=== PATIENT | male | born 1995 | race Caucasian/White ===

== ENCOUNTER 2019-10-18 14:11 | Inpatient (IN) ==
[2019-10-18] MEDS ORDERED: ROCURONIUM 10 MG/ML ML IV ONE (14:18)
[2019-10-18] MEDS: MIDAZOLAM 2 MG/2 ML VIAL IV PRN ×2 (14:32→15:00)
[2019-10-18 14:34] LABS: POC Blood Urea Nitrogen 13 mg/dl (5-18); POC CO2 21 mmol/L (22-30); POC Calcium, Ionized 1.16 mmol/L (1.10-1.36); POC Chloride 101 mmol/L (96-108); POC Creatinine 1.8 mg/dl (0.2-0.7); POC Glucose, Random 101 mg/dL (70-105); POC Sodium 140 mmol/L (133-145)
--- NOTE | 2019-10-18 14:47 | Emergency Department Note ---
Overdose HPI General Chief Complaint: Overdose Stated Complaint: code Time Seen by Provider: 10/18/19 14:38 Mode of arrival: EMS Limitations: altered mental status and other (Comatose and unresponsive to painful stimuli) History of Present Illness HPI Narrative: Narrative: This patient was found down in the bathroom at [employer] just a couple blocks from the hospital. He was unconscious and unresponsive. He did have some needles and syringes in the room and there was concerned that he had overdosed. EMS gave him 4 mg intranasal of Narcan and then 4 mg IV. On arrival emergency room he started seizing. His pupils initially were pinpoint according to EMS but are now more widely dilated. They are equal. Patient was unres ponsive to painful stimuli and so intubation was carried out immediately. His heart rate is about 149 his O2 sat is 100%. He has no signs of obvious trauma to the body. Related Data Allergies Allergy/AdvReac Type Severity Reaction Status Date / Time No Known Drug Allergies Allergy Unverified 10/18/19 16:00 Review of Systems ROS ROS Narrative: Narrative: Limitations: ROS unobtainable due to patients medical condition [facility] Narrative Patient History Narrative: Narrative: Unable to obtain any past history on this patient and we do not have him in the system as we do not know his name. Medical/Surgical/Family History All Active Problems (Updated 10/18/19 @ 16:19 by Shayne Sharma MD) Drug overdose (Acute) Acute anoxic encephalopathy (Acute) Seizure disorder (Acute) Social History Smoking Status: Unknown if ever smoked Exam Narrative Narrative: Narrative: General Limitations: altered mental status and other (Comatose and unresponsive to painful stimuli) Head Head: atraumatic, normocephalic and normal inspection Eye Eye: Present other (Pupils are 4 to 5 mm in dilation and responsive.) ENT ENT: Present other (Teeth initially clenched.) Neck Neck: Present normal inspection Chest Chest: Present normal inspection and symmetric chest wall rise Respiratory Respiratory: Present normal lung sounds bilaterally and other (Breath sounds were heard through bagging through the ET tube.); Absent respiratory distress, rales/crackles and wheezes Cardiovascular Cardiovascular: Present regular rate, tachycardia and normal heart sounds Adbominal Abdominal: Present soft; Absent distention and tenderness Extremities Extremities: Absent pedal edema and pretibial edema Skin Skin: Present warm, dry and normal color; Absent diaphoresis Course Vital Signs Vital signs: Vital Signs Pulse Rate 135 H 10/18/19 14:12 Respiratory Rate 19 10/18/19 14:12 Blood Pressure 179/93 10/18/19 14:12 Pulse Oximetry (%) 100 10/18/19 14:12 Temperature 101.0 F H 10/18/19 16:05 Pulse Rate 146 10/18/19 14:44 Respiratory Rate 18 10/18/19 16:00 Blood Pressure 123/44 10/18/19 16:04 Pulse Oximetry (%) 94 10/18/19 16:05 Procedures Intubation paralytic: Rocuronium Mg Given: 60 Laryngoscope: glide Assist Device Used: Bougie ET Tube Size: 8 ET Tube Uncuffed: No Tube Secured Depth (cm): 25 Tube Placement Confirmation: visualized tube passing through cords, equal breath sounds bilaterally and confirmation by capnometry Patient Tolerated Procedure: well and no complications Additional Comments: Respiratory therapy felt that the first tube had a defect in the cuff and so a second tube was passed over the bougie. He continued to have good color change on capnography and continued to have a good O2 saturation and continued to have good breath sounds. This chest x-ray showed good position of the ET tube. Passage of the first ET tube through the cords was visualized. It is felt that the second tube is in the proper position over the bougie using that technique. MDM MDM Narrative Medical decision making narrative: Narrative: Patient's drug screen was positive for opiates and benzodiazepines. White count was elevated he had a temperature of 101. Also was quite acidotic with a pH of 7.0. Anion gap of 30. This patient continued seizing for quite a while and required 8 mg of Ativan and the thousand milligrams of Keppra and a propofol drip to obtain control. I discussed this case quite early with the hospitalist Dr. Cheung who accepted him for admission. CT scan of the head was negative for trauma. He will go to the ICU. Current working diagnosis is drug overdose with an anoxic encephalopathy. Differential Diagnosis Differential Diagnosis: Drug overdose head trauma seizure disorder other medical disorder Lab Data Lab results reviewed: Yes I reviewed the patient's lab results. Result diagrams: 10/18/19 14:18 10/18/19 14:18 Labs: Lab Results 10/18/19 10/18/19 10/18/19 Range/Units 14:18 14:18 14:18 WBC 25.4 H (8.04-15.40) K/mcL RBC 5.66 (4.10-5.74) M/mcL Hgb 17.2 (13.4-20.0) g/dL Hct 55.8 (39.6-57.2) % POC Hct 56.0 (44.0-66.0) % MCV 98.6 (91.3-106.4) fL MCH 30.4 L (31.1-35.9) pg MCHC 30.8 L (33.0-35.7) g/dL RDW 13.0 L (14.6-17.3) % Plt Count 270 (144-449) K/mcL MPV 10.1 L (10.2-12.0) fL Gran % 63.7 (15.2-66.1) % Lymph % (Auto) 26.3 (24.9-68.5) % [place] % (Auto) 7.6 (5.2-20.6) % Eos % (Auto) 1.7 (0.3-5.2) % Baso % (Auto) 0.7 (0.1-0.8) % Gran # 16.19 H (1.60-6.75) K/mcL Lymph # (Auto) 6.68 (1.75-8.0) K/mcL [place] # (Auto) 1.94 H (0.52-1.77) K/mcL Eos # (Auto) 0.43 (0.09-0.66) K/mcL Baso # (Auto) 0.19 H (0.02-0.11) K/mcL POC Sodium 140 (133-145) mmol/L Sodium 142 (133-145) mmol/L POC Potassium 4.0 (3.3-5.1) mmol/L Potassium 4.4 (3.3-5.1) mmol/L POC Chloride 101 (96-108) mmol/L Chloride 94 L (96-108) mmol/L Carbon Dioxide 18 L (22-30) mmol/L POC Total CO2 21 L (22-30) mmol/L Anion Gap 30.0 H (8-16) POC BUN 13 (5-18) mg/dl BUN 12 (5-18) mg/dl Creatinine 2.0 H (0.2-0.7) mg/dl POC Creatinine 1.8 H (0.2-0.7) mg/dl GFR Calculation TNP Glucose 107 H (70-105) mg/dL POC Glucose 101 (70-105) mg/dL Calcium 9.6 (8.6-10.4) mg/dl POC WB Ioniz Calcium 1.16 (1.10-1.36) mmol/L Total Bilirubin 0.4 L (2.0-6.0) mg/dL AST 136 H (0-37) U/l ALT 90 H (0-40) U/l Alkaline Phosphatase 179 (117-390) U/L Total Protein 7.6 (4.8-8.0) gm/dL Albumin 5.0 (3.2-5.2) gm/dL Globulin 2.6 (2.2-3.7) gm/dL Albumin/Globulin Ratio 1.9 (1.0-2.3) Salicylates mg/dL Urine Opiates Screen (NONDETECTED) Ur Oxycodone Screen (NONDETECTED) Urine Methadone Screen (NONDETECTED) Acetaminophen ug/mL Ur Barbiturates Screen (NONDETECTED) Ur Phencyclidine Scrn (NONDETECTED) Ur Amphetamines Screen (NONDETECTED) U Benzodiazepines Scrn (NONDETECTED) Urine Cocaine Screen (NONDETECTED) U Marijuana (THC) Screen (NONDETECTED) Ethyl Alcohol < 0.010 (<0.010) gm/dl 10/18/19 10/18/19 10/18/19 Range/Units 14:18 14:18 15:02 WBC (8.04-15.40) K/mcL RBC (4.10-5.74) M/mcL Hgb (13.4-20.0) g/dL Hct (39.6-57.2) % POC Hct (44.0-66.0) % MCV (91.3-106.4) fL MCH (31.1-35.9) pg MCHC (33.0-35.7) g/dL RDW (14.6-17.3) % Plt Count (144-449) K/mcL MPV (10.2-12.0) fL Gran % (15.2-66.1) % Lymph % (Auto) (24.9-68.5) % [place] % (Auto) (5.2-20.6) % Eos % (Auto) (0.3-5.2) % Baso % (Auto) (0.1-0.8) % Gran # (1.60-6.75) K/mcL Lymph # (Auto) (1.75-8.0) K/mcL [place] # (Auto) (0.52-1.77) K/mcL Eos # (Auto) (0.09-0.66) K/mcL Baso # (Auto) (0.02-0.11) K/mcL POC Sodium (133-145) mmol/L Sodium (133-145) mmol/L POC Potassium (3.3-5.1) mmol/L Potassium (3.3-5.1) mmol/L POC Chloride (96-108) mmol/L Chloride (96-108) mmol/L Carbon Dioxide (22-30) mmol/L POC Total CO2 (22-30) mmol/L Anion Gap (8-16) POC BUN (5-18) mg/dl BUN (5-18) mg/dl Creatinine (0.2-0.7) mg/dl POC Creatinine (0.2-0.7) mg/dl GFR Calculation Glucose (70-105) mg/dL POC Glucose (70-105) mg/dL Calcium (8.6-10.4) mg/dl POC WB Ioniz Calcium (1.10-1.36) mmol/L Total Bilirubin (2.0-6.0) mg/dL AST (0-37) U/l ALT (0-40) U/l Alkaline Phosphatase (117-390) U/L Total Protein (4.8-8.0) gm/dL Albumin (3.2-5.2) gm/dL Globulin (2.2-3.7) gm/dL Albumin/Globulin Ratio (1.0-2.3) Salicylates < 0.3 mg/dL Urine Opiates Screen Suspect positive A (NONDETECTED) Ur Oxycodone Screen None detected (NONDETECTED) Urine Methadone Screen None detected (NONDETECTED) Acetaminophen < 5.0 ug/mL Ur Barbiturates Screen None detected (NONDETECTED) Ur Phencyclidine Scrn None detected (NONDETECTED) Ur Amphetamines Screen None detected (NONDETECTED) U Benzodiazepines Scrn Suspect positive A (NONDETECTED) Urine Cocaine Screen None detected (NONDETECTED) U Marijuana (THC) Screen None detected (NONDETECTED) Ethyl Alcohol (<0.010) gm/dl Radiology Data Radiology results reviewed: Yes I reviewed the patient's radiology results. CC TIME Critical Care Time Critical Care Time: Yes Total Critical Care Time: 60 Attestation: This patient required quite a bit of bedside attention and repeat evaluation including initial intubation. Also control of seizure activity which was quite resistant to initial treatment. Also consultation with specialist for admission. Discharge Plan Patient/Caregiver Discharge Instructions Pt seen by SINGE MACHINE OPERATOR/PA only: No Clinical Impression: Drug overdose, Acute anoxic encephalopathy, Seizure disorder Patient Disposition: Xfer As Inpt ([facility])
[2019-10-18] MEDS ORDERED: LORazepam 2 MG/ML VIAL IV ONE ×4 (15:02→17:47)
[2019-10-18] MEDS: LORazepam 2 MG/ML VIAL IV PRN ×3 (15:05→15:42)
--- NOTE | 2019-10-18 15:05 | Cat Scan Report ---
INDICATION: unresponsive at arrival COMPARISON: None. TECHNIQUE: Axial noncontrast-enhanced images through the brain. Sagittally and coronally reformatted images. FINDINGS: Cerebral hemispheres:Negative. No intra-axial abnormality. No intra-axial hematoma. No localized mass effect. Brain volume is within normal limits. No hydrocephalus Brainstem and cerebellum:No intra-axial abnormality Extra-axial:No acute hemorrhage. No subdural or epidural hematoma. No subarachnoid hemorrhage. Basilar cisterns are normal Calvarial:No calvarial fracture. No lytic lesion Temporal bones are negative. No destructive lesions Soft tissue, orbits, sinuses:Orbits and visualized facial soft tissues are grossly normal. IMPRESSION: Negative noncontrast enhanced brain CT scan The exam was performed using radiation dose optimization techniques including, but not limited to, automated exposure control, adjustment of the mA and/or kV according to patient size and use of iterative reconstruction technique. Interpreted and Authenticated by: Damien Ortega 10/18/19
--- NOTE | 2019-10-18 15:06 | XRay Report ---
INDICATION: Cardiac arrest TECHNIQUE: AP portable supine chest x-ray COMPARISON: None FINDINGS:There is an endotracheal tube with its tip 3 cm above the otis. Lungs:Lungs are negative. No focal pulmonary parenchymal infiltrate or mass Heart, vascular:No significant cardiomegaly. Pulmonary vascularity is normal. No pulmonary edema or pulmonary congestion Mediastinum, sanya:No mediastinal widening. No hilar mass Pleura:No pleural fluid. No pleural-based mass or calcification Skeletal:Negative. IMPRESSION: 1. Endotracheal tube tip 3 cm above the otis 2. Otherwise negative supine chest x-ray Interpreted and Authenticated by: Damien Ortega 10/18/19
[2019-10-18 15:11] LABS: Basophils # (Auto) 0.19 K/mcL (0.02-0.11); Basophils % (Auto) 0.7 % (0.1-0.8); Eosinophils # (Auto) 0.43 K/mcL (0.09-0.66); Eosinophils % (Auto) 1.7 % (0.3-5.2); Granulocytes % (Auto) 63.7 % (15.2-66.1); Hematocrit 55.8 % (39.6-57.2); Hemoglobin 17.2 g/dL (13.4-20.0); Lymphocytes # (Auto) 6.68 K/mcL (1.75-8.0); Lymphocytes % (Auto) 26.3 % (24.9-68.5); Mean Cell Volume 98.6 fL (91.3-106.4); Mean Corpuscular HGB Conc 30.8 g/dL (33.0-35.7); Mean Platelet Volume 10.1 fL (10.2-12.0); Monocytes # (Auto) 1.94 K/mcL (0.52-1.77); Monocytes % (Auto) 7.6 % (5.2-20.6); Platelet Count 270 K/mcL (144-449); RBC 5.66 M/mcL (4.10-5.74); WBC 25.4 K/mcL (8.04-15.40)
[2019-10-18] MEDS ORDERED: levETIRAcetam 1,000 MG in 0.9 % SODIUM CHLORIDE 100 ML IV SCH ×2 (15:18→21:00)
[2019-10-18] MEDS ORDERED: LORazepam 2 MG/ML VIAL ONE ×2 (15:19→15:32)
[2019-10-18 15:27] LABS: Alcohol, Blood < 10.0 mg/dL (<10); Alcohol,Blood < 0.010 gm/dl (<0.010)
[2019-10-18 15:33] LABS: ALT/SGPT 90 U/l (0-40); AST/SGOT 136 U/l (0-37); Albumin/Globulin Ratio 1.9 (1.0-2.3); Alkaline Phosphatase 179 U/L (117-390); Bilirubin,Total 0.4 mg/dL (2.0-6.0); Blood Urea Nitrogen 12 mg/dl (5-18); Calcium 9.6 mg/dl (8.6-10.4); Carbon Dioxide 18 mmol/L (22-30); Chloride 94 mmol/L (96-108); Globulin 2.6 gm/dL (2.2-3.7); Glucose 107 mg/dL (70-105)
[2019-10-18] MEDS ORDERED: PROPOFOL 1,000 MG in PREMIX 1 BAG IV ONE (15:40)
[2019-10-18 16:01] LABS: Amphetamine Screen,Urine NONE DETECTED (NONDETECTED); Barbiturate Screen,Urine NONE DETECTED (NONDETECTED); Benzodiazepines Screen,Urine SUSPECT POSITIVE (NONDETECTED); Cannabinoid Screen,Urine NONE DETECTED (NONDETECTED); Cocaine Screen,Urine NONE DETECTED (NONDETECTED); Opiate Screen,Urine SUSPECT POSITIVE (NONDETECTED); Oxycodone, Urine Screen NONE DETECTED (NONDETECTED); Phencyclidine Screen,Urine NONE DETECTED (NONDETECTED)
[2019-10-18] MEDS ORDERED: 0.9 % SODIUM CHLORIDE 1,000 ML IV ONE (16:04)
[2019-10-18] MEDS ORDERED: 0.9 % SODIUM CHLORIDE 2,000 ML IV ONE (16:04)
[2019-10-18] MEDS ORDERED: 0.9 % SODIUM CHLORIDE 1,000 ML IV SCH ×2 (16:15→16:31)
--- NOTE | 2019-10-18 16:15 | Internal Med History&Physical ---
HPI History of Present Illness Patient information: Note initiated : 10/18/19 at 4:10 pm Service Date, if different from initiated Date: [] Patient: Lucas Sims a 24 y/o M admitted on for code. Chief Complaint: Found down in a grocery store restroom with drug paraphernalia History of present illness: Mr. Sims is a 24 year old M with a history of substance abuse, including methamphetamine and heroin, with a recent heroin and probable clonazepam overdose last month, was hospitalized at [facility]. At that time, he was evaluated by mental health and was determined to be an accidental overdose. History is obtained in reviewing those records, and speaking to his mother at bedside. Of note the patient originally presented as Damien Lambert. His name is been corrected. The patient does have a separate MRN with some data from 2013 and 2014 also in the system. The patient was found down in the restroom at the grocery store [place]door to the hospital. There was drug paraphernalia present. His pupils were initially pinpoint. He received Narcan intranasally x2 by EMS without significant response. As he arrived at the emergency department he began having seizures and received lorazepam. After arrival, his pupils are more responsive though the patient did not respond to physical or verbal stimuli. He subsequently started developing more seizures. He has now been loaded with a gram of Keppra, as well as several further doses of Lorazepam, his seizures are starting to taper off. Significant findings include normal blood pressure, tachycardia up to the 140s during seizure episodes, leukocytosis to 25,000, pH 7.09, PCO2 50 and PO2 428 on ABG, lactate of 6.8 and creatinine of 2.0. Patient is being admitted for further management of apparent drug overdose. Complete past medical, surgical, family and social history not obtainable due to the patient's encephalopathy and being intubated. Review of Systems ROS unobtainable: due to endotracheal tube PFSH PFSH All Active Problems (Updated 10/18/19 @ 20:56 by Theresa Petersen RN) Seizure disorder (Acute) Acute kidney injury (nontraumatic) (Acute) Acidosis, metabolic, with respiratory acidosis (Acute) Seizure (Acute) Drug overdose (Acute) Acute anoxic encephalopathy (Acute) Medical History (Updated 10/18/19 @ 20:56 by Theresa Petersen RN) Asthma (Acute) Drug overdose (Acute) Seizure (Acute) Family History (Updated 10/18/19 @ 18:23 by Sonja Kaur MD) Unknown No problems noted. Social History smoking status: Smoker, status unknown MEDS/ALLERGIES Home Medications and Allergies Home Medications Medication Instructions Recorded Confirmed Type clonazepam PO 10/18/19 History Allergies Allergy/AdvReac Type Severity Reaction Status Date / Time No Known Drug Allergies Allergy Unverified 10/18/19 16:00 EXAM Constitutional Vitals: Temp Pulse Resp BP Pulse Ox 101.0 F H 146 18 123/44 94 10/18/19 16:05 10/18/19 14:44 10/18/19 16:00 10/18/19 16:04 10/18/19 16:05 GENERAL: Sedated, intermittent seizure activity, intubated. HEENT: No evidence of trauma noted, pupils 7 mm and reactive slowly to direct and indirect light. No nystagmus. Conjunctiva clear, no scleral icterus. Hearing unable to be tested. Oropharynx with endotracheal and orogastric tubes in place, membranes appear moist. NECK: Supple without meningismus, no thyromegaly RESPIRATORY: Breath sounds clear bilaterally without wheezes or rhonchi. Respiratory effort assisted by ventilator. CARDIOVASCULAR: Tachycardic, regular, no murmur appreciated. 2+ carotid pulses, 2+ dorsalis pedis pulses, no peripheral edema. GI: Abdomen soft, no apparent tenderness, bowel sounds present. No hepatosplenomegaly. MUSCULOSKELETAL: No joint erythema or swelling, normal range of motion in all extremities. SKIN: Warm, dry. Track keane on the arms. Several tattoos. Skin turgor normal. NEUROLOGIC: Patient experiencing seizure activity with movement of the left arm, chewing motions on the endotracheal tube, fluttering of the eyelids and spontaneous eye movements. Cranial nerves II through XII as can best be tested noted above under HEENT. Muscle mass normal. Strength cannot be examined. Sensation cannot be examined due to mental status. PSYCHIATRIC: Not responsive, unable to assess mood, affect, insight or orientation. DATA Data Completed and Pending Labs on day of discharge: Labs from last 24 hours 10/18/19 10/18/19 10/18/19 15:02 15:02 14:18 WBC RBC Hgb Hct POC Hct MCV MCH MCHC RDW Plt Count MPV Gran % Lymph % (Auto) [place] % (Auto) Eos % (Auto) Baso % (Auto) Gran # Lymph # (Auto) [place] # (Auto) Eos # (Auto) Baso # (Auto) VBG Lactic Acid 6.8 POC Sodium Sodium POC Potassium Potassium POC Chloride Chloride Carbon Dioxide POC Total CO2 Anion Gap POC BUN BUN Creatinine POC Creatinine GFR Calculation Glucose POC Glucose Calcium POC WB Ioniz Calcium Total Bilirubin AST ALT Alkaline Phosphatase Total Protein Albumin Globulin Albumin/Globulin Ratio Salicylates Urine Opiates Screen Suspect positive A Ur Opiates Confirm Pending Ur Oxycodone Screen None detected Urine Methadone Screen None detected Ur Methadone Confirm Pending Acetaminophen < 5.0 Ur Barbiturates Screen None detected Ur Barbiturate Confirm Pending Ur Phencyclidine Scrn None detected Urine PCP Confirm Pending Ur Amphetamines Screen None detected U Amphetamines Confirm Pending U Benzodiazepines Scrn Suspect positive A U Benzodiazepine Confm Pending Urine Cocaine Screen None detected Urine Cocaine Confirm Pending U Cannabinoids Confirm Pending U Marijuana (THC) Screen None detected Ethyl Alcohol 10/18/19 10/18/19 10/18/19 14:18 14:18 14:18 WBC RBC Hgb Hct POC Hct 56.0 MCV MCH MCHC RDW Plt Count MPV Gran % Lymph % (Auto) [place] % (Auto) Eos % (Auto) Baso % (Auto) Gran # Lymph # (Auto) [place] # (Auto) Eos # (Auto) Baso # (Auto) VBG Lactic Acid POC Sodium 140 Sodium 142 POC Potassium 4.0 Potassium 4.4 POC Chloride 101 Chloride 94 L Carbon Dioxide 18 L POC Total CO2 21 L Anion Gap 30.0 H POC BUN 13 BUN 12 Creatinine 2.0 H POC Creatinine 1.8 H GFR Calculation TNP Glucose 107 H POC Glucose 101 Calcium 9.6 POC WB Ioniz Calcium 1.16 Total Bilirubin 0.4 L AST 136 H ALT 90 H Alkaline Phosphatase 179 Total Protein 7.6 Albumin 5.0 Globulin 2.6 Albumin/Globulin Ratio 1.9 Salicylates < 0.3 Urine Opiates Screen Ur Opiates Confirm Ur Oxycodone Screen Urine Methadone Screen Ur Methadone Confirm Acetaminophen Ur Barbiturates Screen Ur Barbiturate Confirm Ur Phencyclidine Scrn Urine PCP Confirm Ur Amphetamines Screen U Amphetamines Confirm U Benzodiazepines Scrn U Benzodiazepine Confm Urine Cocaine Screen Urine Cocaine Confirm U Cannabinoids Confirm U Marijuana (THC) Screen Ethyl Alcohol < 0.010 10/18/19 14:18 WBC 25.4 H RBC 5.66 Hgb 17.2 Hct 55.8 POC Hct MCV 98.6 MCH 30.4 L MCHC 30.8 L RDW 13.0 L Plt Count 270 MPV 10.1 L Gran % 63.7 Lymph % (Auto) 26.3 [place] % (Auto) 7.6 Eos % (Auto) 1.7 Baso % (Auto) 0.7 Gran # 16.19 H Lymph # (Auto) 6.68 [place] # (Auto) 1.94 H Eos # (Auto) 0.43 Baso # (Auto) 0.19 H VBG Lactic Acid POC Sodium Sodium POC Potassium Potassium POC Chloride Chloride Carbon Dioxide POC Total CO2 Anion Gap POC BUN BUN Creatinine POC Creatinine GFR Calculation Glucose POC Glucose Calcium POC WB Ioniz Calcium Total Bilirubin AST ALT Alkaline Phosphatase Total Protein Albumin Globulin Albumin/Globulin Ratio Salicylates Urine Opiates Screen Ur Opiates Confirm Ur Oxycodone Screen Urine Methadone Screen Ur Methadone Confirm Acetaminophen Ur Barbiturates Screen Ur Barbiturate Confirm Ur Phencyclidine Scrn Urine PCP Confirm Ur Amphetamines Screen U Amphetamines Confirm U Benzodiazepines Scrn U Benzodiazepine Confm Urine Cocaine Screen Urine Cocaine Confirm U Cannabinoids Confirm U Marijuana (THC) Screen Ethyl Alcohol Impressions Impressions: EKG sinus tachycardia in the 140s. No acute injury. Imaging and Cardiology CT scan - head: Status: image reviewed by me Additional comments: No acute findings Chest x-ray: Status: image reviewed by me Additional comments: Clear lung levy with endotracheal tube in place A/P Assessment and plan (1) Drug overdose: Status: Acute Qualifiers: Encounter type: initial encounter Injury intent: undetermined intent Qualified Code(s): T50.904A - Poisoning by unspecified drugs, medicaments and biological substances, undetermined, initial encounter (2) Seizure: Status: Acute (3) Acute anoxic encephalopathy: Status: Acute (4) Acidosis, metabolic, with respiratory acidosis: Status: Acute (5) Acute kidney injury (nontraumatic): Status: Acute Narrative A/P Narrative: 24-year-old male with a history of drug abuse and drug overdoses found down in the bathroom of local grocery store, presenting unresponsive with seizure activity. Drug overdose. Urine drug screen is positive for opioids. Had a heroin overdose in August of this year, was hospitalized at [facility]. Ultimately determined to be accidental at that time, he was not interested in inpatient rehabilitation. He does have a prescription for clonazepam and that was suspected to be a co-ingestant at that hospitalization. Currently, patient did have drug paraphernalia when he is found, suspect this is also opioid overdose, also positive for benzodiazepines, thus clonazepam may also be contributing. No evidence of ethanol, no evidence of acetaminophen. Salicylate level is pending, particularly given his metabolic acidosis. Plan: ICU admission Continue with mechanical ventilation and respiratory support Continue with fluids Follow-up salicylate level Seizure. Patient developed seizures at presentation in the hospital. Received multiple doses of lorazepam in the ED, subsequently loaded with Keppra. That in combination with propofol for sedation has suppressed seizure activity. Acc ording to his mother, no known history of seizures. May be related to metabolic acidosis or possible anoxic brain injury. No evidence of hemorrhage, infarction or other finding on CT of the head. Continue with Keppra 500 mg twice daily Seizure precautions PRN lorazepam Encephalopathy. Suspect acute anoxic encephalopathy. Given the patient's pH of 7.09 after presentation in the hospital suspect he may have been down for quite some time to develop a metabolic and respiratory acidosis. This likely had concurrent hypoxia. Other causes of encephalopathy include drug toxicity (though no real change with naloxone). No evidence of infarct or hemorrhage on CT. Neurochecks Monitor recovery Supportive care Mixed metabolic and respiratory acidosis. pH 7.09 with PCO2 of 50 with lactate of 6.8. PCO2 of 50 was after the patient had been bagged, thus may have had a higher PCO2 in the field. Given severity of acidosis and elevation of lactate, suspect he was down for a prolonged period. Correct respiratory acidosis ventilator Trend lactate with correction of hypoxia and hypoventilation. If slow to clear acidemia, would consider bicarbonate Acute kidney injury. Patient's creatinine was 2.0 at presentation with a BUN of 12. His creatinine was 1.1 when he presented to [facility] last month. This may represent ATN from hypoxia or hypotension associated with his drug overd ose. He is nonoliguric and has produced urine in the hospital. Send spot urine sodium and creatinine and calculate fractional excretion of sodium Continue with hydration Monitor urine output Renally dose any medications as needed. Leukocytosis. White count is 25,000. Suspected this is reactive secondary to seizure, being found down. No evidence of infiltrate on chest x-ray, no evidence of infection in the urine. No other evidence on exam. Patient subsequently also developed fever to 101, again likely secondary from seizure. A diagnosis of sepsis is NOT made. Monitor Supportive care Abnormal transaminases. AST is mildly elevated 136, ALT at 90. May been secondary to hypoxia and being down. We will be secondary to drug use. Monitor Prophylaxis: Lovenox CODE STATUS: Full code Time Spent With Patient Time: Critical care time spent in evaluating and managing patient: 65 min
[2019-10-18] MEDS ORDERED: ONDANSETRON 4 MG/2 ML VIAL IV PRN (16:31)
[2019-10-18] MEDS ORDERED: LORazepam 2 MG/ML VIAL IV PRN (16:31)
[2019-10-18] MEDS: 0.9 % SODIUM CHLORIDE 1,000 ML IV SCH (17:15)
[2019-10-18] MEDS: ACETAMINOPHEN 650 MG SUPP.RECT PR PRN (17:16)
--- NOTE | 2019-10-18 18:51 | XRay Report ---
INDICATION: OG Tube placement confirmation TECHNIQUE: AP portable chest x-ray COMPARISON: Previous chest x-ray dated 10/18/2019 FINDINGS:Endotracheal tube tip 4 cm above the otis. There is an esophagogastric tube with its tip in the proximal stomach. Sidehole of the catheter is just below the diaphragm. This should be advanced. Lungs:Lungs are negative. No focal pulmonary parenchymal infiltrate or mass Heart, vascular:No significant cardiomegaly. Pulmonary vascularity is normal. No pulmonary edema or pulmonary congestion Mediastinum, sanya:No mediastinal widening. No hilar mass Pleura:No pleural fluid. No pleural-based mass or calcification Skeletal:Negative. IMPRESSION: 1. Endotracheal tube in good position 2. Esophagogastric tube in the proximal stomach Interpreted and Authenticated by: Damien Ortega 10/18/19
[2019-10-18] MEDS: 0.9 % SODIUM CHLORIDE 10 ML SYRINGE IV SCH (20:19)
[2019-10-18] MEDS: CHLORHEXIDINE GLUCONATE 1 ML ORAL.SOL SWABMOUTH SCH (20:19)
[2019-10-18] MEDS: FAMOTIDINE/PF 20 MG/2 ML VIAL IV SCH (20:19)
[2019-10-18] MEDS ORDERED: levETIRAcetam 750 MG in 0.9 % SODIUM CHLORIDE 100 ML IV SCH (21:00)
[2019-10-18] MEDS ORDERED: LACTATED RINGERS 1,000 ML IV ONE (22:00)
[2019-10-18 23:14] LABS: Blood Urea Nitrogen 14 mg/dl (6-20); Calcium 7.3 mg/dl (8.6-10.4); Carbon Dioxide 14 mmol/L (22-30); Chloride 104 mmol/L (96-108); Glomerular Filtration Rate 76; Glucose 97 mg/dL (70-105)
[2019-10-19] MEDS: PROPOFOL 1,000 MG in PREMIX 1 BAG IV SCH ×2 (03:50→22:38)
[2019-10-19] MEDS: 0.9 % SODIUM CHLORIDE 250 ML IV SCH ×2 (03:50→17:52)
[2019-10-19] MEDS: ACETAMINOPHEN 650 MG SUPP.RECT PR PRN (05:15)
[2019-10-19] MEDS: 0.9 % SODIUM CHLORIDE 10 ML SYRINGE IV SCH ×3 (06:01→20:08)
[2019-10-19 06:07] LABS: Hematocrit 49.9 % (40.1-51.0); Hemoglobin 16.5 g/dL (13.7-17.5); Mean Cell Volume 93.3 fL (80.0-100.0); Mean Corpuscular HGB Conc 33.1 g/dL (31.0-36.0); Mean Platelet Volume 10.4 fL (7.4-10.4); Platelet Count 168 K/mcL (140-440); RBC 5.35 M/mcL (4.63-6.08); Red Cell Distribution Width 13.4 % (11.5-14.5); WBC 15.6 K/mcL (4.50-11.00)
[2019-10-19 06:43] LABS: Albumin 2.9 gm/dL (3.2-5.2); Albumin/Globulin Ratio 1.2 (1.0-2.3); Alkaline Phosphatase 114 U/L (39-117); Bilirubin,Direct < 0.2 mg/dL (0.0-0.3); Bilirubin,Total 0.4 mg/dL (0.0-1.0); Blood Urea Nitrogen 13 mg/dl (6-20); Calcium 7.3 mg/dl (8.6-10.4); Carbon Dioxide 18 mmol/L (22-30); Chloride 104 mmol/L (96-108); Globulin 2.5 gm/dL (2.2-3.7); Glomerular Filtration Rate 76; Glucose 99 mg/dL (70-105); Phosphorous 3.2 mg/dL (2.7-4.5); Triglycerides 708 mg/dl (<150); Uric Acid 6.8 mg/dL (2.5-8.0)
[2019-10-19] MEDS: 0.9 % SODIUM CHLORIDE 1,000 ML IV SCH ×6 (06:47→21:19)
--- NOTE | 2019-10-19 06:52 | XRay Report ---
INDICATION: Mechanically Ventilated TECHNIQUE: AP portable semiupright chest x-ray COMPARISON: Previous chest x-rays dated 10/18/2019 FINDINGS:Endotracheal tube tip remains 4 cm above the otis Lungs:Density in left retrocardiac region consistent with left lower lobe volume loss. Pneumonia is possible. Possible developing right upper lobe infiltrate. Continued follow-up recommended. Heart, vascular:No significant cardiomegaly. Pulmonary vascularity is normal. No pulmonary edema or pulmonary congestion Mediastinum, sanya:No mediastinal widening. No hilar mass Pleura:No pleural fluid. No pleural-based mass or calcification Skeletal:Negative. IMPRESSION: 1. Left lower lobe density consistent with volume loss. 2. Mild right upper lobe infiltrate. Continued follow-up recommended Interpreted and Authenticated by: Damien Ortega 10/19/19
[2019-10-19 06:55] LABS: ALT/SGPT 499 U/l (0-40)
[2019-10-19 07:03] LABS: AST/SGOT 1443 U/l (0-37); Lactate Dehydrogenase 1663 U/L (94-250)
[2019-10-19] MEDS: levETIRAcetam 500 MG in 0.9 % SODIUM CHLORIDE 100 ML IV SCH ×2 (09:40→20:08)
[2019-10-19] MEDS: cefTRIAXone 1 GM VIAL IV SCH (09:40)
[2019-10-19] MEDS: FAMOTIDINE/PF 20 MG/2 ML VIAL IV SCH ×2 (09:40→20:08)
[2019-10-19] MEDS: ENOXAPARIN 40 MG/0.4 ML SYRINGE SQ SCH (09:40)
[2019-10-19] MEDS: CHLORHEXIDINE GLUCONATE 1 ML ORAL.SOL SWABMOUTH SCH ×2 (09:40→20:09)
[2019-10-19] MEDS: ACETAMINOPHEN 650 MG/65 ML BOTTLE IV PRN ×2 (11:28→22:03)
[2019-10-19 12:21] LABS: Appearance,Urine TURBID; Bacteria,Urine 0 /hpf (0); Bilirubin,Urine NEG (NEG); Color,Urine BROWN; Culture Indicated,Urine NO; Glucose,Urine (UA) NEGATIVE (NEG); Ketones,Urine 20 mg/dL (NEG); Leukocyte Esterase,Urine NEG /uL (NEG); Mucus,Urine MOD /hpf (0); Nitrate,Urine NEG (NEG); Protein,Urine 100 mg/dL (NEG); Specific Gravity,Urine 1.028 (1.000-1.035); Urine Blood NEG mg/dL (<0.03); Urine RBC 0 /hpf (0-1); Urine Squamous Epithelial Cell 0 /hpf (0-4); Urine WBC 0 /hpf (0-4); Urobilinogen,Urine NEG (NEG)
[2019-10-19] MEDS ORDERED: LACTATED RINGERS 1,000 ML IV ONE (12:48)
[2019-10-19] MEDS ORDERED: SODIUM CHLORIDE 0.9% IV ONE (13:30)
[2019-10-19] MEDS ORDERED: FOSPHENYTOIN IV ONE (13:30)
[2019-10-19 13:43] LABS: Band Neutrophils % 9 % (0-10); Lymphocytes % 11 % (15-49); Monocytes % (Manual) 8 % (1-12); Platelet Estimate NORMAL (NORMAL); RBC Morphology NORMAL (NORMAL); Segmented Neutrophils % 72 % (38-78)
[2019-10-19 16:30] LABS: Blood Urea Nitrogen 12 mg/dl (6-20); Calcium 7.3 mg/dl (8.6-10.4); Carbon Dioxide 18 mmol/L (22-30); Chloride 106 mmol/L (96-108); Glomerular Filtration Rate 118; Glucose 144 mg/dL (70-105)
[2019-10-19 17:21] LABS: Creatine Kinase 50100 IU/L (24-195)
[2019-10-19] MEDS: LORazepam 2 MG/ML VIAL IV PRN ×4 (17:51→22:50)
[2019-10-19] MEDS ORDERED: LORazepam 2 MG/ML VIAL ONE (17:55)
--- NOTE | 2019-10-19 21:13 | Internal Med Progress Note ---
SUBJECTIVE Subjective Patient information: Note initiated : 10/19/19 at 9:12 pm Service Date, if different from initiated Date: [] Patient: Lucas Sims 24 y/o M admitted on 10/18/19 for code. Chief Complaint: Follow-up apparent overdose Interval history: Patient remains intubated. When sedation lightened, he is able to follow some commands. However times he develops clenched fist, raises his arms, tends to turn to one side which last for several seconds and then he becomes unresponsive. Concerned he may be having some partial seizures. Urine noted to become cloudy brownish. Repeat urine analysis with protein, no red cells, no casts. Given urine findings, CPK sent, significant rhabdomyolysis 60,000. Renal function has normalized however. Pertinent ROS: Not obtainable, patient intubated. Constitutional Vitals: Vital Signs Temp Pulse Resp BP Pulse Ox 100.3 F H 100 H 18 110/75 100 10/19/19 21:00 10/19/19 21:00 10/19/19 19:15 10/19/19 21:00 10/19/19 21:00 Period Temp Pulse Resp BP Sys/Patel Pulse Ox Last 24 Hr 98.8 F-102.7 F 81-141 14-30 99-156/67-107 90-100 Intake and Output 10/19/19 10/19/19 10/19/19 05:59 13:59 21:59 Intake Total 2064 1224 3048 Output Total 477 459 545 Balance 1298 626 7638 Weight 178 lb 1 oz Patient Weight 10/20/19 05:59 Weight 178 lb 1 oz General: Intubated. When sedation lightened, tracks, generally follows instructions Chest: Clear bilaterally Cardiovascular: Tachycardic, regular. No peripheral edema Abdomen: Soft, no apparent tenderness Neuro: Follows some commands. Moves right leg more than left leg, though not much movement in either. Activity Specialist. At times has episodes of fist clenching, raising arm, head turning and eyes deviating, lasting several seconds then becoming less responsive to questioning. Intake & Output: Intake & Output 10/19/19 10/19/19 10/19/19 05:59 13:59 21:59 Intake Total 2064 1224 3048 Output Total 477 459 545 Balance 6127 703 9783 Weight 178 lb 1 oz Intake: IV 2064 1224 3048 Sodium Chloride 0.9% 1,000 ml @ 1000 1000 1600 150 mls/hr IV .[id number] [facility] Rx#: [id number] Sodium Chloride 0.9% 250 ml @ 250 20 mls/hr IV .[id number] [facility] Rx#: [id number] Cerebyx 1,500 mg In Sodium 130 Chloride 0.9% 100 ml @ 200 mls/ hr IV ONCE ONE Rx#:[id number] Lactated Ringers 1,000 ml @ 1000 1000 Wide Open IV BOLUS ONE Rx#: [id number] Diprivan 1,000 mg In Premix 1 64 54 68 Bag @ 10 MCG/KG/MIN 4.555 mls/ hr IV .[id number] [facility] Rx#: [id number] Keppra 500 mg In Sodium 105 Chloride 0.9% 100 ml @ 200 mls/ hr IV Q12H [facility] Rx#:[id number] Tube Feeding 0 0 Output: Gastric Drainage 75 Oral NG/OG 75 Urine Catheter Amount 402 459 505 Void Amount 40 Other: Urine Appearance Cloudy Cloudy Uretheral (Garcia) Clear Cloudy Cloudy Urine Color Yellow Brown Brown Straw Uretheral (Garcia) Red Brown Tea Colored Straw Urine Odor Normal Normal OBJ DATA Labs CBC & Chem 7: 10/19/19 05:10 10/19/19 15:05 Labs: Abnormal Lab Results 10/19/19 10/19/19 10/19/19 15:05 09:15 05:10 WBC MCH MCHC RDW MPV Gran # [place] # (Auto) Baso # (Auto) Lymphocytes % VBG Lactic Acid Chloride Carbon Dioxide 18 L POC Total CO2 Anion Gap Creatinine POC Creatinine Glucose 144 H Calcium 7.3 L Total Bilirubin GGT AST ALT Lactate Dehydrogenase Total Creatine Kinase 99689 H 51700 H Total Protein Albumin Triglycerides Urine Protein 100 A Urine Ketones 20 A Urine Opiates Screen U Benzodiazepines Scrn 10/19/19 10/19/19 10/18/19 05:10 05:10 22:10 WBC 15.6 H MCH MCHC RDW MPV Gran # [place] # (Auto) Baso # (Auto) Lymphocytes % 11 L VBG Lactic Acid Chloride Carbon Dioxide 18 L 14 L POC Total CO2 Anion Gap 18.0 H Creatinine 1.3 H 1.3 H POC Creatinine Glucose Calcium 7.3 L 7.3 L Total Bilirubin GGT 165 H AST 1443 H ALT 499 H Lactate Dehydrogenase 1663 H Total Creatine Kinase Total Protein 5.4 L Albumin 2.9 L Triglycerides 708 H Urine Protein Urine Ketones Urine Opiates Screen U Benzodiazepines Scrn 10/18/19 10/18/19 10/18/19 15:02 15:02 14:18 WBC MCH MCHC RDW MPV Gran # [place] # (Auto) Baso # (Auto) Lymphocytes % VBG Lactic Acid 6.8 H* Chloride 94 L Carbon Dioxide 18 L POC Total CO2 21 L Anion Gap 30.0 H Creatinine 2.0 H POC Creatinine 1.8 H Glucose 107 H Calcium Total Bilirubin 0.4 L GGT AST 136 H ALT 90 H Lactate Dehydrogenase Total Creatine Kinase Total Protein Albumin Triglycerides Urine Protein Urine Ketones Urine Opiates Screen Suspect positive A U Benzodiazepines Scrn Suspect positive A 10/18/19 14:18 WBC 25.4 H MCH 30.4 L MCHC 30.8 L RDW 13.0 L MPV 10.1 L Gran # 16.19 H [place] # (Auto) 1.94 H Baso # (Auto) 0.19 H Lymphocytes % VBG Lactic Acid Chloride Carbon Dioxide POC Total CO2 Anion Gap Creatinine POC Creatinine Glucose Calcium Total Bilirubin GGT AST ALT Lactate Dehydrogenase Total Creatine Kinase Total Protein Albumin Triglycerides Urine Protein Urine Ketones Urine Opiates Screen U Benzodiazepines Scrn Meds: Medications Acetaminophen (Tylenol) 650 mg ND Q4-6HP PRN; Protocol PRN Reason: Per Pain Protocol/Fever > 101 Last Admin: 10/19/19 05:15 Dose: 650 mg Documented by: Albuterol Sulfate (Ventolin) 2.5 mg NEB Q4HP PRN PRN Reason: Wheezing Ceftriaxone Sodium (Rocephin) 1 gm IV DAILY [facility]; Protocol Last Admin: 10/19/19 09:40 Dose: 1 gm Documented by: Chlorhexidine Gluconate (Peridex) 15 ml SWABMOUTH BID [facility] Last Admin: 10/19/19 20:09 Dose: 15 ml Documented by: Enoxaparin Sodium (Lovenox) 40 mg SQ DAILY [facility] Last Admin: 10/19/19 09:40 Dose: 40 mg Documented by: Famotidine (Pepcid) 20 mg IV Q12 [facility] Last Admin: 10/19/19 20:08 Dose: 20 mg Documented by: Levetiracetam 500 mg/ Sodium (Chloride) 105 mls @ 200 mls/hr IV Q12H [facility] Last Admin: 10/19/19 20:08 Dose: 200 mls/hr Documented by: Propofol 1,000 mg/ Premix 100 mls @ 4.555 mls/hr IV .[id number] [facility]; Protocol Last Titration: 10/19/19 17:30 Dose: 35 mcg/kg/min, 15.943 mls/hr Documented by: Sodium Chloride (Sodium Chloride 0.9%) 250 mls @ 20 mls/hr IV .[id number] [facility] Last Admin: 10/19/19 17:52 Dose: 20 mls/hr Documented by: Acetaminophen (Ofirmev) 650 mg in 65 mls @ 130 mls/hr IV Q6HP PRN; Protocol PRN Reason: PAIN/FEVER > 101 Last Infusion: 10/19/19 12:15 Dose: Infused Documented by: Sodium Chloride (Sodium Chloride 0.9%) 1,000 mls @ 250 mls/hr IV .Q4H [facility] Last Admin: 10/19/19 17:52 Dose: 250 mls/hr Documented by: Lorazepam (Ativan) 2 mg IV Q30MIN PRN PRN Reason: Seizure Activity Last Admin: 10/19/19 20:08 Dose: 2 mg Documented by: Ondansetron HCl (Zofran) 4 mg IV Q4-6HP PRN; Protocol PRN Reason: Nausea And Vomiting Sodium Chloride (Saline Flush) 10 ml IV Q8 [facility] Last Admin: 10/19/19 20:08 Dose: Not Given Documented by: A/P Narrative A/P Narrative: 24-year-old male with a history of drug abuse and drug overdoses found down in the bathroom of local grocery store, presenting unresponsive with seizure activity. Drug overdose. Continuing to require ventilatory support secondary to several problems as outlined below. Ventilating and oxygenating easily. Urine drug screen is positive for opioids. Had a heroin overdose in August of this year, was hospitalized at [facility]. Ultimately determined to be accidental at that time, he was not interested in inpatient rehabilitation. He does have a prescription for clonazepam and that was suspected to be a co-ingestant at that hospitalization. Currently, patient did have drug paraphernalia when he is found, suspect this is also opioid overdose, also positive for benzodiazepines, thus clonazepam may also be contributing. No evidence of ethanol, no evidence of acetaminophen. Salicylate level was undetectable. Plan: Continue with mechanical ventilation and respiratory support Continue with fluids Weaning trials as mental status allows Seizures. Ongoing. Currently suspect he is having partial seizures with his fist clenching, head and eye deviation episodes followed by decreased responsiveness. At presentation, he developed seizures upon arrival to the ED. Received multiple doses of lorazepam in the ED, subsequently loaded with Keppra. That in combination with propofol for sedation has suppressed seizure activity. According to his mother, no known history of seizures. May be related to metabolic acidosis or possible anoxic brain injury. No evidence of hemorrhage, infarction or other finding on CT of the head. Continues on Keppra 500 mg IV twice daily. Given suspicion for ongoing seizures, will load with fosphenytoin Continue with Keppra 500 mg twice daily Load with 20 mg/kilogram fosphenytoin Seizure precautions PRN lorazepam Encephalopathy. 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 Given the patient's pH of 7.09 after presentation in the hospital suspect he may have been down for quite some time to develop a metabolic and respiratory acidosis. This likely had concurrent hypoxia. Other causes of encephalopathy include drug toxicity (though no real change with naloxone). No evidence of infarct or hemorrhage on CT. Has waxing and waning ability to follow commands. Part of that may be due to seizures as noted above. Continue neurochecks Supportive care Continue wake-up trials to monitor mental status Mixed metabolic and respiratory acidosis. Resolving. pH has normalized, anion gap has closed and lactate is normalized. At presentation, pH 7.09 with PCO2 of 50 with lactate of 6.8. PCO2 of 50 was after the patient had been bagged, thus may have had a higher PCO2 in the field. Given severity of acidosis and elevation of lactate, suspect he was down for a prolonged period. -Supportive care, follow labs. Acute kidney injury. Resolving. Patient's creatinine was 2.0 at presentation with a BUN of 12. His creatinine was 1.1 when he presented to [facility] last month. This may represent ATN from hypoxia or hypotension associated with his drug overdose, though given the rapidity of resolution, this may be more prerenal in nature. Fractional excretion of sodium is 0.3% supporting a prerenal etiology. He continues with urine output. Continue with hydration Monitor urine output Rhabdomyolysis. Suspect it may be multifactorial from being down, as well as from significant seizure activity. CPK today was 60,000, recheck in the afternoon showed drop to 50,000. Urine is muddy, however urine analysis without casts and is maintaining urine output. Creatinine is improving with fluids. Bolus of further liter of lactated Ringer's Increase fluid rate to 250 mils an hour Follow CK Leukocytosis. White count is 25,000 at presentation, is improved 15,000 without antibiotics. Suspected this is reactive secondary to seizure, being found down. No evidence of infiltrate on admission chest x-ray, no evidence of infect ion in the urine. Patient subsequently also developed fever to 101, and has persisted with elevated fever since. Initially felt possibly secondary to seizure. Now concern for possible aspiration pneumonia. Chest x-ray this morning suggests developing right upper lobe infiltrate. Currently no sepsis. Begin ceftriaxone 1 g IV every 24 hours Monitor white count. Abnormal transaminases. At presentation AST was mildly elevated 136, ALT at 90, though has worsened today. Suspect this represents shock liver/hypoxic liver damage. Continue to monitor Prophylaxis: Lovenox CODE STATUS: Full code Time Spent With Patient Time: Critical care time throughout this date of service: 40 minutes.
[2019-10-20] MEDS: 0.9 % SODIUM CHLORIDE 1,000 ML IV SCH ×6 (02:24→20:29)
[2019-10-20] MEDS: PROPOFOL 1,000 MG in PREMIX 1 BAG IV SCH ×2 (03:49→09:52)
[2019-10-20 07:03] LABS: Hematocrit 42.3 % (40.1-51.0); Hemoglobin 13.7 g/dL (13.7-17.5); Mean Cell Volume 95.3 fL (80.0-100.0); Mean Corpuscular HGB Conc 32.4 g/dL (31.0-36.0); Mean Platelet Volume 10.7 fL (7.4-10.4); Platelet Count 155 K/mcL (140-440); RBC 4.44 M/mcL (4.63-6.08); Red Cell Distribution Width 13.7 % (11.5-14.5); WBC 17.1 K/mcL (4.50-11.00)
--- NOTE | 2019-10-20 07:15 | XRay Report ---
INDICATION: Mechanically Ventilated TECHNIQUE: AP portable semiupright chest x-ray COMPARISON: Previous chest x-rays dated 10/19/2019, 10/18/2019 FINDINGS:Endotracheal tube and esophagogastric tube are unchanged. Lungs:Left basilar parenchymal density consistent with volume loss and infiltrate. Pneumonia is possible. Findings are stable since 10/19/2019 but new since 10/18/2019 Heart, vascular:No significant cardiomegaly. Pulmonary vascularity is normal. No pulmonary edema or pulmonary congestion Mediastinum, sanya:No mediastinal widening. No hilar mass Pleura:No pleural fluid. No pleural-based mass or calcification Skeletal:Negative. IMPRESSION: Left basilar pulmonary parenchymal density consistent with volume loss and possible pneumonia Interpreted and Authenticated by: Damien Ortega 10/20/19
[2019-10-20 07:43] LABS: Bilirubin,Direct < 0.2 mg/dL (0.0-0.3)
[2019-10-20 07:47] LABS: ALT/SGPT 382 U/l (0-40); AST/SGOT 658 U/l (0-37); Albumin 2.3 gm/dL (3.2-5.2); Albumin/Globulin Ratio 1.1 (1.0-2.3); Alkaline Phosphatase 73 U/L (39-117); Bilirubin,Total 0.6 mg/dL (0.0-1.0); Blood Urea Nitrogen 8 mg/dl (6-20); Calcium 7.3 mg/dl (8.6-10.4); Carbon Dioxide 19 mmol/L (22-30); Chloride 113 mmol/L (96-108); Globulin 2.1 gm/dL (2.2-3.7); Glomerular Filtration Rate 124; Glucose 104 mg/dL (70-105); Phosphorous 1.1 mg/dL (2.7-4.5); Triglycerides 90 mg/dl (<150); Uric Acid 2.4 mg/dL (2.5-8.0)
[2019-10-20 07:57] LABS: Lactate Dehydrogenase 1011 U/L (94-250)
[2019-10-20 08:14] LABS: Band Neutrophils % 2 % (0-10); Eosinophils % (Manual) 2 % (0-7); Lymphocytes % 27 % (15-49); Monocytes % (Manual) 4 % (1-12); Platelet Estimate NORMAL (NORMAL); RBC Morphology NORMAL (NORMAL); Segmented Neutrophils % 65 % (38-78)
[2019-10-20] MEDS: 0.9 % SODIUM CHLORIDE 10 ML SYRINGE IV SCH ×3 (08:20→20:29)
[2019-10-20] MEDS: cefTRIAXone 1 GM VIAL IV SCH (09:40)
[2019-10-20] MEDS: ENOXAPARIN 40 MG/0.4 ML SYRINGE SQ SCH (09:41)
[2019-10-20] MEDS: FAMOTIDINE/PF 20 MG/2 ML VIAL IV SCH ×2 (09:41→20:29)
[2019-10-20] MEDS: 0.9 % SODIUM CHLORIDE 250 ML IV SCH ×3 (09:53→22:53)
[2019-10-20] MEDS ORDERED: DEXMEDETOMIDINE 400 MCG in PREMIX 1 BAG IV SCH (10:15)
[2019-10-20] MEDS: levETIRAcetam 500 MG in 0.9 % SODIUM CHLORIDE 100 ML IV SCH ×2 (10:19→20:29)
--- NOTE | 2019-10-20 10:32 | Internal Med Progress Note ---
SUBJECTIVE Subjective Patient information: Note initiated : 10/20/19 at 10:24 am Service Date, if different from initiated Date: [] Patient: Lucas Sims 24 y/o M admitted on 10/18/19 for code. Chief Complaint: Follow-up overdose Interval history: Patient was stable overnight, no further possible seizure activity. This morning still moving around on significant doses of propofol. Undergoing weaning parameters. Showing some agitation, but should be able to be extubated. Continuing to maintain good urine output. Creatinine improved. CPKs decreased to 17,000. Pertinent ROS: Unobtainable, patient intubated Constitutional Vitals: Vital Signs Temp Pulse Resp BP Pulse Ox 98.1 F 107 H 20 129/89 98 10/20/19 10:00 10/20/19 10:00 10/20/19 07:01 10/20/19 10:00 10/20/19 10:00 Period Temp Pulse Resp BP Sys/Patel Pulse Ox Last 24 Hr 97.0 F-101.6 F 78-141 18-30 98-156/61-102 90-100 Intake and Output 10/19/19 10/20/19 10/20/19 21:59 05:59 13:59 Intake Total 4025 1083 1346 Output Total 545 1110 114 Balance 3480 -27 1232 Weight 178 lb 1 oz General: Intubated, sedated Chest: Clear, not overriding the vent Cardiovascular: Regular, no edema Abdomen: Soft, nondistended Neuro: Sedated, moves all extremities, upper extremities more than lower extremities Intake & Output: Intake & Output 10/19/19 10/20/19 10/20/19 21:59 05:59 13:59 Intake Total 4025 1083 1346 Output Total 545 1110 114 Balance 3480 -27 1232 Weight 178 lb 1 oz Intake: IV 4025 1083 1346 Sodium Chloride 0.9% 1,000 ml @ 2463 1000 1000 250 mls/hr IV .Q4H [facility] Rx#: [id number] Sodium Chloride 0.9% 250 ml @ 250 250 20 mls/hr IV .[id number] [facility] Rx#: [id number] Cerebyx 1,500 mg In Sodium 130 Chloride 0.9% 100 ml @ 200 mls/ hr IV ONCE ONE Rx#:[id number] Lactated Ringers 1,000 ml @ 1000 Wide Open IV BOLUS ONE Rx#: [id number] Diprivan 1,000 mg In Premix 1 77 83 96 Bag @ 10 MCG/KG/MIN 4.555 mls/ hr IV .[id number] [facility] Rx#: [id number] Keppra 500 mg In Sodium 105 Chloride 0.9% 100 ml @ 200 mls/ hr IV Q12H [facility] Rx#:[id number] Tube Feeding 0 Output: Gastric Drainage 75 Oral NG/OG 75 Urine Catheter Amount 505 1035 114 Void Amount 40 Other: Urine Appearance Cloudy Clear Cloudy Uretheral (Garcia) Cloudy Clear Urine Color Straw Bright Yellow Brown Uretheral (Garcia) Straw Bright Yellow Urine Odor Normal OBJ DATA Labs CBC & Chem 7: 10/20/19 05:12 10/20/19 05:12 Labs: Abnormal Lab Results 10/20/19 10/20/19 10/20/19 05:12 05:12 05:12 WBC 17.1 H RBC 4.44 L MCH MCHC RDW MPV 10.7 H Gran # [place] # (Auto) Baso # (Auto) Lymphocytes % VBG Lactic Acid Chloride 113 H Carbon Dioxide 19 L POC Total CO2 Anion Gap Creatinine POC Creatinine Glucose Uric Acid 2.4 L Calcium 7.3 L Phosphorus 1.1 L Total Bilirubin GGT 94 H AST 658 H ALT 382 H Lactate Dehydrogenase 1011 H Total Creatine Kinase 07529 H Total Protein 4.4 L Albumin 2.3 L Globulin 2.1 L Triglycerides Urine Protein Urine Ketones Urine Opiates Screen U Benzodiazepines Scrn 10/19/19 10/19/19 10/19/19 15:05 09:15 05:10 WBC RBC MCH MCHC RDW MPV Gran # [place] # (Auto) Baso # (Auto) Lymphocytes % VBG Lactic Acid Chloride Carbon Dioxide 18 L POC Total CO2 Anion Gap Creatinine POC Creatinine Glucose 144 H Uric Acid Calcium 7.3 L Phosphorus Total Bilirubin GGT AST ALT Lactate Dehydrogenase Total Creatine Kinase 32495 H 57785 H Total Protein Albumin Globulin Triglycerides Urine Protein 100 A Urine Ketones 20 A Urine Opiates Screen U Benzodiazepines Scrn 10/19/19 10/19/19 10/18/19 05:10 05:10 22:10 WBC 15.6 H RBC MCH MCHC RDW MPV Gran # [place] # (Auto) Baso # (Auto) Lymphocytes % 11 L VBG Lactic Acid Chloride Carbon Dioxide 18 L 14 L POC Total CO2 Anion Gap 18.0 H Creatinine 1.3 H 1.3 H POC Creatinine Glucose Uric Acid Calcium 7.3 L 7.3 L Phosphorus Total Bilirubin GGT 165 H AST 1443 H ALT 499 H Lactate Dehydrogenase 1663 H Total Creatine Kinase Total Protein 5.4 L Albumin 2.9 L Globulin Triglycerides 708 H Urine Protein Urine Ketones Urine Opiates Screen U Benzodiazepines Scrn 10/18/19 10/18/19 10/18/19 15:02 15:02 14:18 WBC RBC MCH MCHC RDW MPV Gran # [place] # (Auto) Baso # (Auto) Lymphocytes % VBG Lactic Acid 6.8 H* Chloride 94 L Carbon Dioxide 18 L POC Total CO2 21 L Anion Gap 30.0 H Creatinine 2.0 H POC Creatinine 1.8 H Glucose 107 H Uric Acid Calcium Phosphorus Total Bilirubin 0.4 L GGT AST 136 H ALT 90 H Lactate Dehydrogenase Total Creatine Kinase Total Protein Albumin Globulin Triglycerides Urine Protein Urine Ketones Urine Opiates Screen Suspect positive A U Benzodiazepines Scrn Suspect positive A 10/18/19 14:18 WBC 25.4 H RBC MCH 30.4 L MCHC 30.8 L RDW 13.0 L MPV 10.1 L Gran # 16.19 H [place] # (Auto) 1.94 H Baso # (Auto) 0.19 H Lymphocytes % VBG Lactic Acid Chloride Carbon Dioxide POC Total CO2 Anion Gap Creatinine POC Creatinine Glucose Uric Acid Calcium Phosphorus Total Bilirubin GGT AST ALT Lactate Dehydrogenase Total Creatine Kinase Total Protein Albumin Globulin Triglycerides Urine Protein Urine Ketones Urine Opiates Screen U Benzodiazepines Scrn Meds: Medications Acetaminophen (Tylenol) 650 mg SC Q4-6HP PRN; Protocol PRN Reason: Per Pain Protocol/Fever > 101 Last Admin: 10/19/19 05:15 Dose: 650 mg Documented by: Albuterol Sulfate (Ventolin) 2.5 mg NEB Q4HP PRN PRN Reason: Wheezing Ceftriaxone Sodium (Rocephin) 1 gm IV DAILY [facility]; Protocol Last Admin: 10/20/19 09:40 Dose: 1 gm Documented by: Chlorhexidine Gluconate (Peridex) 15 ml SWABMOUTH BID [facility] Last Admin: 10/19/19 20:09 Dose: 15 ml Documented by: Enoxaparin Sodium (Lovenox) 40 mg SQ DAILY [facility] Last Admin: 10/20/19 09:41 Dose: 40 mg Documented by: Famotidine (Pepcid) 20 mg IV Q12 [facility] Last Admin: 10/20/19 09:41 Dose: 20 mg Documented by: Levetiracetam 500 mg/ Sodium (Chloride) 105 mls @ 200 mls/hr IV Q12H [facility] Last Admin: 10/20/19 10:19 Dose: 200 mls/hr Documented by: Propofol 1,000 mg/ Premix 100 mls @ 4.555 mls/hr IV .[id number] [facility]; Protocol Last Admin: 10/20/19 09:52 Dose: 35 mcg/kg/min, 15.943 mls/hr Documented by: Sodium Chloride (Sodium Chloride 0.9%) 250 mls @ 20 mls/hr IV .[id number] [facility] Last Admin: 10/20/19 09:53 Dose: 20 mls/hr Documented by: Acetaminophen (Ofirmev) 650 mg in 65 mls @ 130 mls/hr IV Q6HP PRN; Protocol PRN Reason: PAIN/FEVER > 101 Last Admin: 10/19/19 22:03 Dose: 130 mls/hr Documented by: Sodium Chloride (Sodium Chloride 0.9%) 1,000 mls @ 250 mls/hr IV .Q4H [facility] Last Admin: 10/20/19 10:19 Dose: Not Given Documented by: Dexmedetomidine HCl 400 mcg/ (Premix) 100 mls @ 4.038 mls/hr IV .Q24H [facility]; Protocol Lorazepam (Ativan) 2 mg IV Q30MIN PRN PRN Reason: Seizure Activity Last Admin: 10/19/19 22:50 Dose: 2 mg Documented by: Ondansetron HCl (Zofran) 4 mg IV Q4-6HP PRN; Protocol PRN Reason: Nausea And Vomiting Sodium Chloride (Saline Flush) 10 ml IV Q8 [facility] Last Admin: 10/20/19 08:20 Dose: Not Given Documented by: A/P Assessment and plan (1) Drug overdose: Status: Acute Qualifiers: Encounter type: initial encounter Injury intent: undetermined intent Qualified Code(s): T50.904A - Poisoning by unspecified drugs, medicaments and biological substances, undetermined, initial encounter Narrative A/P Narrative: 24-year-old male with a history of drug abuse and drug overdoses found down in the bathroom of local grocery store, presenting unresponsive with seizure activity. Drug overdose. Improving. Tolerating weaning trial this morning. Has been able to follow commands when sedation lightened throughout the morning as well as overnight. Ventilating and oxygenating easily. Had a heroin overdose in August of this year, was hospitalized at [facility]. Ultimately determined to be accidental at that time, he was not interested in inpatient rehabilitation. He does have a prescription for clonazepam and that was suspected to be a co- ingestant at that hospitalization. Currently, patient did have drug paraphernalia when he is found, suspect this is also opioid overdose, also positive for benzodiazepines, thus clonazepam may also be contributing. No evidence of ethanol, no evidence of acetaminophen. Salicylate level was undetectable. Plan: Wean mechanical ventilation to extubate this morning Continue with fluids Seizures. Improved. Loaded with fosphenytoin yesterday, remains on twice daily Keppra. At presentation, he developed seizures upon arrival to the ED. Received multiple doses of lorazepam in the ED, subsequently loaded with Keppra. That in combination with propofol for sedation has suppressed seizure activity. According to his mother, no known history of seizures. May be related to metabolic acidosis or possible anoxic brain injury. No evidence of hemorrhage, infarction or other finding on CT of the head. Continues on Keppra 500 mg IV twice daily. Continue with Keppra 500 mg twice daily Seizure precautions PRN lorazepam Encephalopathy. Improved, generally able to consistently follow commands. That was waxing and waning yesterday.. Initially suspected acute anoxic encephalopathy, though postictal state may also be contributing. Given the patient's pH of 7.09 after presentation in the hospital suspect he may have been down for quite some time to develop a metabolic and respiratory acidosis. This likely had concurrent hypoxia. Other causes of encephalopathy include drug toxicity (though no real change with naloxone). No evidence of infarct or h emorrhage on CT. Continue neurochecks Supportive care Mixed metabolic and respiratory acidosis. Resolving. pH has normalized, anion gap has closed and lactate is normalized. At presentation, pH 7.09 with PCO2 of 50 with lactate of 6.8. PCO2 of 50 was after the patient had been bagged, thus may have had a higher PCO2 in the field. Given severity of acidosis and elevation of lactate, suspect he was down for a prolonged period. -Supportive care, follow labs. Acute kidney injury. Resolving. Patient's creatinine was 2.0 at presentation with a BUN of 12. His creatinine was 1.[address] [facility] last month. This may represent ATN from hypoxia or hypotension associated with his drug overdose, though given the rapidity of resolution, this may be more prerenal in nature. Fractional excretion of sodium is 0.3% supporting a prerenal etiology. He continues with urine output. Continue with hydration Monitor urine output Rhabdomyolysis. Suspect it may be multifactorial from being down, as well as from significant seizure activity. CPK today was 60,000 when initially checked, down to 17,000 this morning. Yesterday his urine was muddy, however urine analysis without casts and is maintaining urine output. Continue at 250 mils an hour Follow CK Leukocytosis. White count is 25,000 at presentation, is improved 15,000 without antibiotics, then 17,000 this morning. Suspected this is reactive secondary to seizure, being found down. No evidence of infiltrate on admission chest x-ray, no evidence of infection in the urine. Patient subsequently also developed fever to 101, and has persisted with elevated temperature. Initially felt possibly secondary to seizure, concern on 825 was possible aspiration pneumonia with yesterday's chest x-ray suggesting d eveloping right upper lobe infiltrate. Today's chest x-ray with left lower lobe atelectasis, though infiltrate cannot be ruled out. Started on ceftriaxone yesterday. Continue ceftriaxone 1 g IV every 24 hours Monitor white count. Abnormal transaminases. At presentation AST was mildly elevated 136, ALT at 90,, worsened on second hospital day, now improving. Suspect this represents shock liver/hypoxic liver damage. Continue to monitor Time Spent With Patient Time: Total time spent is greater than 50% in coordination of care (as documented) at patient's floor/unit and/or counseling patient: Total time spent with greater than 50% in coordination of care (as documented) at patient's floor/unit and/or counseling patient:: Greater than 35 minutes
--- NOTE | 2019-10-20 13:03 | Internal Med Progress Note ---
SUBJECTIVE Subjective Patient information: Note initiated : 10/20/19 at 12:53 pm Service Date, if different from initiated Date: [] Patient: Lucas Sims a 24 y/o M admitted on 10/18/19 for code. Chief Complaint: [] Interval history: History of present illness: Mr. Sims is a 24 year old M with a history of substance abuse, including methamphetamine and heroin, with a recent heroin and probable clonazepam overdose last month, was hospitalized at [facility]. At that time, he was evaluated by mental health and was determined to be an accidental overdose. History is obtained in reviewing those records, and speaking to his mother at bedside. Of note the patient originally presented as Damien Lambert. His name is been corrected. The patient does have a separate MRN with some data from 2013 and 2014 also in the system. The patient was found down in the restroom at the grocery store [place] to the hospital. There was drug paraphernalia present. His pupils were initially pinpoint. He received Narcan intranasally x2 by EMS without significant response. As he arrived at the emergency department he began having seizures and received lorazepam. After arrival, his pupils are more responsive though the patient did not respond to physical or verbal stimuli. He subsequently started developing more seizures. He has now been loaded with a gram of Keppra, as well as several further doses of Lorazepam, his seizures are starting to taper off. Significant findings include normal blood pressure, tachycardia up to the 140s during seizure episodes, leukocytosis to 25,000, pH 7.09, PCO2 50 and PO2 428 on ABG, lactate of 6.8 and creatinine of 2.0. Patient is being admitted for further management of apparent drug overdose. Complete past medical, surgical, family and social history not obtainable due to the patient's encephalopathy and being intubated. 10/18 Patient remains intubated. When sedation lightened, he is able to follow some commands. However times he develops clenched fist, raises his arms, tends to turn to one side which last for several seconds and then he becomes unresponsive. Concerned he may be having some partial seizures. Urine noted to become cloudy brownish. Repeat urine analysis with protein, no red cells, no casts. Given urine findings, CPK sent, significant rhabdomyolysis 60,000. Renal function has normalized however. 10/19 Patient was stable overnight, no further possible seizure activity. This morning still moving around on significant doses of propofol. Undergoing weaning parameters. Showing some agitation, but should be able to be extubated. Continuing to maintain good urine output. Creatinine improved. CPKs decreased to 17,000. Pertinent ROS: Unobtainable, patient intubated 10/20 Constitutional Vitals: Vital Signs Temp Pulse Resp BP Pulse Ox 98.0 F 102 H 18 139/87 99 10/20/19 11:00 10/20/19 11:00 10/20/19 11:40 10/20/19 11:00 10/20/19 11:40 Period Temp Pulse Resp BP Sys/Patel Pulse Ox Last 24 Hr 97.0 F-101.2 F 78-141 18-30 98-156/61-100 90-100 Intake and Output 10/19/19 10/20/19 10/20/19 21:59 05:59 13:59 Intake Total 4025 1083 2487 Output Total 545 1110 220 Balance 3480 -27 2267 Weight 80.768 kg Intake & Output: Intake & Output 10/19/19 10/20/19 10/20/19 21:59 05:59 13:59 Intake Total 4025 1083 2487 Output Total 545 1110 220 Balance 3480 -27 2267 Weight 80.768 kg Intake: IV 4025 1083 2487 Sodium Chloride 0.9% 1,000 ml @ 2463 1000 2000 250 mls/hr IV .Q4H PONCE Rx#: [id number] Sodium Chloride 0.9% 250 ml @ 250 250 20 mls/hr IV .[id number] PONCE Rx#: [id number] Precedex 400 Mcg/100 ml 15 Dextrose 400 Mcg In Premix 1 Bag @ 0.2 MCG/KG/HR 4.038 mls/ hr IV .Q24H PONCE Rx#:[id number] Cerebyx 1,500 mg In Sodium 130 Chloride 0.9% 100 ml @ 200 mls/ hr IV ONCE ONE Rx#:[id number] Lactated Ringers 1,000 ml @ 1000 Wide Open IV BOLUS ONE Rx#: [id number] Diprivan 1,000 mg In Premix 1 77 83 117 Bag @ 10 MCG/KG/MIN 4.555 mls/ hr IV .[id number] PONCE Rx#: [id number] Keppra 500 mg In Sodium 105 105 Chloride 0.9% 100 ml @ 200 mls/ hr IV Q12H PONCE Rx#:[id number] Tube Feeding 0 Output: Gastric Drainage 75 Oral NG/OG 75 Urine Catheter Amount 505 1035 220 Void Amount 40 Other: Urine Appearance Cloudy Clear Clear Uretheral (Garcia) Cloudy Clear Urine Color Straw Bright Yellow Light Jessica Uretheral (Garcia) Straw Bright Yellow Urine Odor Normal Exam: General: Alert, Awake, No acute Distress Eyes/N/T: EOMI, Head/Neck: neck supple, CV: RRR, No murmurs, Pulm: Clear b/l, no wheezing/rhonchi/rales Abd: soft, nontender, +BS x4 Ext: no clubbing/cyanosis/edema Neuro: Alert, no focal deficits, moves all extremities, Skin: warm/dry OBJ DATA Labs CBC & Chem 7: 10/20/19 05:12 10/20/19 05:12 Labs: Abnormal Lab Results 10/20/19 10/20/19 10/20/19 05:12 05:12 05:12 WBC 17.1 H RBC 4.44 L MCH MCHC RDW MPV 10.7 H Gran # [place] # (Auto) Baso # (Auto) Lymphocytes % VBG Lactic Acid Chloride 113 H Carbon Dioxide 19 L POC Total CO2 Anion Gap Creatinine POC Creatinine Glucose Uric Acid 2.4 L Calcium 7.3 L Phosphorus 1.1 L Total Bilirubin GGT 94 H AST 658 H ALT 382 H Lactate Dehydrogenase 1011 H Total Creatine Kinase 61358 H Total Protein 4.4 L Albumin 2.3 L Globulin 2.1 L Triglycerides Urine Protein Urine Ketones Urine Opiates Screen U Benzodiazepines Scrn 10/19/19 10/19/19 10/19/19 15:05 09:15 05:10 WBC RBC MCH MCHC RDW MPV Gran # [place] # (Auto) Baso # (Auto) Lymphocytes % VBG Lactic Acid Chloride Carbon Dioxide 18 L POC Total CO2 Anion Gap Creatinine POC Creatinine Glucose 144 H Uric Acid Calcium 7.3 L Phosphorus Total Bilirubin GGT AST ALT Lactate Dehydrogenase Total Creatine Kinase 16240 H 85241 H Total Protein Albumin Globulin Triglycerides Urine Protein 100 A Urine Ketones 20 A Urine Opiates Screen U Benzodiazepines Scrn 10/19/19 10/19/19 10/18/19 05:10 05:10 22:10 WBC 15.6 H RBC MCH MCHC RDW MPV Gran # [place] # (Auto) Baso # (Auto) Lymphocytes % 11 L VBG Lactic Acid Chloride Carbon Dioxide 18 L 14 L POC Total CO2 Anion Gap 18.0 H Creatinine 1.3 H 1.3 H POC Creatinine Glucose Uric Acid Calcium 7.3 L 7.3 L Phosphorus Total Bilirubin GGT 165 H AST 1443 H ALT 499 H Lactate Dehydrogenase 1663 H Total Creatine Kinase Total Protein 5.4 L Albumin 2.9 L Globulin Triglycerides 708 H Urine Protein Urine Ketones Urine Opiates Screen U Benzodiazepines Scrn 10/18/19 10/18/19 10/18/19 15:02 15:02 14:18 WBC RBC MCH MCHC RDW MPV Gran # [place] # (Auto) Baso # (Auto) Lymphocytes % VBG Lactic Acid 6.8 H* Chloride 94 L Carbon Dioxide 18 L POC Total CO2 21 L Anion Gap 30.0 H Creatinine 2.0 H POC Creatinine 1.8 H Glucose 107 H Uric Acid Calcium Phosphorus Total Bilirubin 0.4 L GGT AST 136 H ALT 90 H Lactate Dehydrogenase Total Creatine Kinase Total Protein Albumin Globulin Triglycerides Urine Protein Urine Ketones Urine Opiates Screen Suspect positive A U Benzodiazepines Scrn Suspect positive A 10/18/19 14:18 WBC 25.4 H RBC MCH 30.4 L MCHC 30.8 L RDW 13.0 L MPV 10.1 L Gran # 16.19 H [place] # (Auto) 1.94 H Baso # (Auto) 0.19 H Lymphocytes % VBG Lactic Acid Chloride Carbon Dioxide POC Total CO2 Anion Gap Creatinine POC Creatinine Glucose Uric Acid Calcium Phosphorus Total Bilirubin GGT AST ALT Lactate Dehydrogenase Total Creatine Kinase Total Protein Albumin Globulin Triglycerides Urine Protein Urine Ketones Urine Opiates Screen U Benzodiazepines Scrn Meds: Medications Acetaminophen (Tylenol) 650 mg OH Q4-6HP PRN; Protocol PRN Reason: Per Pain Protocol/Fever > 101 Last Admin: 10/19/19 05:15 Dose: 650 mg Documented by: Albuterol Sulfate (Ventolin) 2.5 mg NEB Q4HP PRN PRN Reason: Wheezing Ceftriaxone Sodium (Rocephin) 1 gm IV DAILY PONCE; Protocol Last Admin: 10/20/19 09:40 Dose: 1 gm Documented by: Chlorhexidine Gluconate (Peridex) 15 ml SWABMOUTH BID PONCE Last Admin: 10/19/19 20:09 Dose: 15 ml Documented by: Enoxaparin Sodium (Lovenox) 40 mg SQ DAILY [facility] Last Admin: 10/20/19 09:41 Dose: 40 mg Documented by: Famotidine (Pepcid) 20 mg IV Q12 [facility] Last Admin: 10/20/19 09:41 Dose: 20 mg Documented by: Levetiracetam 500 mg/ Sodium (Chloride) 105 mls @ 200 mls/hr IV Q12H [facility] Last Infusion: 10/20/19 11:16 Dose: Infused Documented by: Propofol 1,000 mg/ Premix 100 mls @ 4.555 mls/hr IV .[id number] [facility]; Protocol Last Titration: 10/20/19 11:21 Dose: 0 mcg/kg/min, 0 mls/hr Documented by: Sodium Chloride (Sodium Chloride 0.9%) 250 mls @ 20 mls/hr IV .[id number] [facility] Last Admin: 10/20/19 09:53 Dose: 20 mls/hr Documented by: Acetaminophen (Ofirmev) 650 mg in 65 mls @ 130 mls/hr IV Q6HP PRN; Protocol PRN Reason: PAIN/FEVER > 101 Last Admin: 10/19/19 22:03 Dose: 130 mls/hr Documented by: Sodium Chloride (Sodium Chloride 0.9%) 1,000 mls @ 250 mls/hr IV .Q4H [facility] Last Admin: 10/20/19 11:17 Dose: 250 mls/hr Documented by: Dexmedetomidine HCl 400 mcg/ (Premix) 100 mls @ 4.038 mls/hr IV .Q24H [facility]; Protocol Last Titration: 10/20/19 12:00 Dose: 1 mcg/kg/hr, 20.192 mls/hr Documented by: Sodium Chloride (Sodium Chloride 0.9%) 250 mls @ 20 mls/hr IV .[id number] [facility] Last Admin: 10/20/19 11:00 Dose: 20 mls/hr Documented by: Lorazepam (Ativan) 2 mg IV Q30MIN PRN PRN Reason: Seizure Activity Last Admin: 10/19/19 22:50 Dose: 2 mg Documented by: Ondansetron HCl (Zofran) 4 mg IV Q4-6HP PRN; Protocol PRN Reason: Nausea And Vomiting Sodium Chloride (Saline Flush) 10 ml IV Q8 [facility] Last Admin: 10/20/19 08:20 Dose: Not Given Documented by: A/P Narrative A/P Narrative: A: *Drug overdose. Improving. -Had a heroin overdose in August of this year, was hospitalized at [facility], Ultimately determined to be accidenta -He does have a prescription for clonazepam and that was suspected to be a co-ingestant at that hospitalization. -Currently, patient did have drug paraphernalia when he is found, suspect this is also opioid overdose, also positive for benzodiazepines, thus clonazepam may also be contributing. -No evidence of ethanol, no evidence of acetaminophen. Salicylate level was undetectable. *Seizures: Improved. Loaded with fosphenytoin yesterday, remains on twice daily Keppra. -At presentation, he developed seizures upon arrival to the ED. Received multiple doses of lorazepam in the ED, subsequently loaded with Keppra. That in combination with propofol for sedation has suppressed seizure activity. -According to his mother, no known history of seizures. -May be related to metabolic acidosis or possible anoxic brain injury. -No evidence of hemorrhage, infarction or other finding on CT of the head. *Encephalopathy: Improved. Initially suspected acute anoxic encephalopathy, though postictal state may also be contributing. Given the patient's pH of 7.09 after presentation in the hospital suspect he may have been down for quite some time to develop a metabolic and respiratory acidosis. This likely had concurrent hypoxia. Other causes of encephalopathy include drug toxicity (tho ugh no real change with naloxone). -No evidence of infarct or hemorrhage on CT. *Mixed metabolic and respiratory acidosis: Resolving. At presentation, pH 7.09 with PCO2 of 50 with lactate of 6.8. -Given severity of acidosis and elevation of lactate, suspect he was down for a prolonged period. *QUENTIN: Resolving. This may represent ATN from hypoxia or hypotension associated with his drug overdose, though given the rapidity of resolution, this may be more prerenal in nature. Fractional excretion of sodium is 0.3% supporting a prerenal etiology. He continues with urine output. *Rhabdomyolysis: Suspect it may be multifactorial from being down, as well as from significant seizure activity. CPK today was 60,000 when initially checked, down to 17,000 this morning. Yesterday his urine was muddy, however urine analysis without casts and is maintaining urine output. *Leukocytosis: White count is 25,000 at presentation, is improved 15,000 without antibiotics, then 17,000 this morning. Suspected this is reactive secondary to seizure, being found down. No evidence of infiltrate on admission chest x-ray, no evidence of infection in the urine. Patient subsequently also developed fever to 101, and has persisted with elevated temperature. Initially felt possibly secondary to seizure, concern on 825 was possible aspiration pneumonia with yesterday's chest x-ray suggesting developing right upper lobe infiltrate. Today's chest x-ray with left lower lobe atelectasis, though infiltrate cannot be ruled out. Started on ceftriaxone yesterday. *Asp PNA: *Abnormal transaminases. At presentation AST was mildly elevated 136, ALT at 90,, worsened on second hospital day, now improving. Suspect this represents shock liver/hypoxic liver damage. P: Continue with Keppra 500 mg twice daily, PRN lorazepam Seizure precautions Continue neurochecks Continue ceftriaxone 1 g IV every 24 hours, Monitor white count. Continue with hydration, Monitor urine output Follow CK - -ppx: lovenox/ppi Time Spent With Patient Time: Total time spent is greater than 50% in coordination of care (as documented) at patient's floor/unit and/or counseling patient:
[2019-10-20] MEDS ORDERED: PANTOPRAZOLE 40 MG VIAL IV SCH (13:05)
[2019-10-20] MEDS ORDERED: POTASSIUM PHOSPHATE 40 MEQ in DEXTROSE 5% IN WATER 500 ML IV ONE (15:11)
[2019-10-20] MEDS: CHLORHEXIDINE GLUCONATE 1 ML ORAL.SOL SWABMOUTH SCH ×2 (15:15→20:29)
[2019-10-20] MEDS: DEXMEDETOMIDINE 400 MCG in PREMIX 1 BAG IV SCH ×2 (16:08→22:54)
[2019-10-20] MEDS: NEUTRA PHOS 1 PACKET PO SCH (20:29)
[2019-10-20] MEDS: LORazepam 2 MG/ML VIAL IV PRN (21:20)
[2019-10-21] MEDS: 0.9 % SODIUM CHLORIDE 250 ML IV SCH (00:44)
[2019-10-21] MEDS: 0.9 % SODIUM CHLORIDE 1,000 ML IV SCH ×2 (01:48→06:21)
[2019-10-21] MEDS: 0.9 % SODIUM CHLORIDE 10 ML SYRINGE IV SCH ×3 (05:11→20:39)
[2019-10-21] MEDS: DEXMEDETOMIDINE 400 MCG in PREMIX 1 BAG IV SCH ×2 (05:38→17:29)
[2019-10-21 06:58] LABS: Hematocrit 43.4 % (40.1-51.0); Hemoglobin 13.3 g/dL (13.7-17.5); Mean Cell Volume 99.1 fL (80.0-100.0); Mean Corpuscular HGB Conc 30.6 g/dL (31.0-36.0); Mean Platelet Volume 10.6 fL (7.4-10.4); Platelet Count 119 K/mcL (140-440); RBC 4.38 M/mcL (4.63-6.08); Red Cell Distribution Width 14.2 % (11.5-14.5); WBC 12.9 K/mcL (4.50-11.00)
[2019-10-21] MEDS: ALBUTEROL SULFATE 2.5 MG/3 ML NEBULIZER NEB PRN ×2 (07:00→12:18)
[2019-10-21 07:13] LABS: ALT/SGPT 545 U/l (0-40); Albumin 2.5 gm/dL (3.2-5.2); Alkaline Phosphatase 94 U/L (39-117); Bilirubin,Direct 0.3 mg/dL (0.0-0.3); Bilirubin,Total 0.7 mg/dL (0.0-1.0); Blood Urea Nitrogen 8 mg/dl (6-20); Carbon Dioxide 20 mmol/L (22-30); Globulin 2.4 gm/dL (2.2-3.7); Glomerular Filtration Rate 118; Glucose 108 mg/dL (70-105); Triglycerides 106 mg/dl (<150); Uric Acid 2.4 mg/dL (2.5-8.0)
[2019-10-21 07:14] LABS: Chloride 113 mmol/L (96-108)
--- NOTE | 2019-10-21 07:32 | Internal Med Progress Note ---
SUBJECTIVE Subjective Patient information: Note initiated : 10/21/19 at 7:26 am Service Date, if different from initiated Date: [] Patient: Lucas Sims a 24 y/o M admitted on 10/18/19 for code. Chief Complaint: [] Interval history: History of present illness: Mr. Sims is a 24 year old M with a history of substance abuse, including methamphetamine and heroin, with a recent heroin and probable clonazepam overdose last month, was hospitalized at [facility]. At that time, he was evaluated by mental health and was determined to be an accidental overdose. History is obtained in reviewing those records, and speaking to his mother at bedside. Of note the patient originally presented as Damien Lambert. His name is been corrected. The patient does have a separate MRN with some data from 2013 and 2014 also in the system. The patient was found down in the restroom at the grocery store [place] to the hospital. There was drug paraphernalia present. His pupils were initially pinpoint. He received Narcan intranasally x2 by EMS without significant response. As he arrived at the emergency department he began having seizures and received lorazepam. After arrival, his pupils are more responsive though the patient did not respond to physical or verbal stimuli. He subsequently started developing more seizures. He has now been loaded with a gram of Keppra, as well as several further doses of Lorazepam, his seizures are starting to taper off. Significant findings include normal blood pressure, tachycardia up to the 140s during seizure episodes, leukocytosis to 25,000, pH 7.09, PCO2 50 and PO2 428 on ABG, lactate of 6.8 and creatinine of 2.0. Patient is being admitted for further management of apparent drug overdose. Complete past medical, surgical, family and social history not obtainable due to the patient's encephalopathy and being intubated. 10/18 Patient remains intubated. When sedation lightened, he is able to follow some commands. However times he develops clenched fist, raises his arms, tends to turn to one side which last for several seconds and then he becomes unresponsive. Concerned he may be having some partial seizures. Urine noted to become cloudy brownish. Repeat urine analysis with protein, no red cells, no casts. Given urine findings, CPK sent, significant rhabdomyolysis 60,000. Renal function has normalized however. 10/19 Patient was stable overnight, no further possible seizure activity. This morning still moving around on significant doses of propofol. Undergoing weaning parameters. Showing some agitation, but should be able to be extubated. Continuing to maintain good urine output. Creatinine improved. CPKs decreased to 17,000. Pertinent ROS: Unobtainable, patient intubated 10/20 Precedex being weaned down. Clarifying home medications. Leukocytosis improved again. Phosphorus improving. Transaminitis mild bump from yesterday but improved from several days ago. CK bumped from yesterday. Good urine output, clear now. Review of Systems: denies headache/fever/chills/nausea/vomiting/chest or abdominal pain/cough/dyspnea/diarrhea. Otherwise see above. Constitutional Vitals: Vital Signs Temp Pulse Resp BP Pulse Ox 97.2 F 68 17 111/74 100 10/21/19 07:01 10/21/19 07:01 10/21/19 07:01 10/21/19 07:01 10/21/19 07:01 Period Temp Pulse Resp BP Sys/Patel Pulse Ox Last 24 Hr 90.4 F-98.8 F 54-107 13-25 96-148/53-97 95-100 Intake and Output 10/20/19 10/21/19 10/21/19 21:59 05:59 13:59 Intake Total 2326 3260.0909 105 Output Total 750 1067 90 Balance 1576 2193.0909 15 Weight 83.546 kg Intake & Output: Intake & Output 10/20/19 10/21/19 10/21/19 21:59 05:59 13:59 Intake Total 2326 3260.0909 105 Output Total 750 1067 90 Balance 1576 2193.0909 15 Weight 83.546 kg Intake: IV 2086 2900.0909 105 Sodium Chloride 0.9% 1,000 ml @ 2000 2000 250 mls/hr IV .Q4H [facility] Rx#: [id number] Sodium Chloride 0.9% 250 ml @ 238 20 mls/hr IV .[id number] [facility] Rx#: [id number] Precedex 400 Mcg/100 ml 86 153 Dextrose 400 Mcg In Premix 1 Bag @ 0.2 MCG/KG/HR 4.038 mls/ hr IV Q24H [facility] Rx#:[id number] Potassium Phosphate 40 Meq In 509.0909 Dextrose 5% in Water 500 ml @ 127.273 mls/hr IV ONCE ONE Rx#: [id number] Keppra 500 mg In Sodium 105 Chloride 0.9% 100 ml @ 200 mls/ hr IV Q12H [facility] Rx#:[id number] Oral 240 360 Output: Urine Catheter Amount 750 1067 90 Other: Urine Appearance Clear Clear Uretheral (Garcia) Clear Clear Urine Color Bright Yellow Dark Yellow Uretheral (Garcia) Bright Yellow Dark Yellow Exam: General: drowsy but Awakens, No acute Distress Eyes/N/T: EOMI, Head/Neck: neck supple, CV: RRR, No murmurs, Pulm: Clear b/l, no wheezing/rhonchi/rales Abd: soft, nontender, +BS x4 Ext: no clubbing/cyanosis/edema Neuro: awake, no focal deficits, moves all extremities Skin: warm/dry OBJ DATA Labs CBC & Chem 7: 10/21/19 04:55 10/21/19 04:55 Labs: Abnormal Lab Results 10/21/19 10/21/19 10/20/19 04:55 04:55 05:12 WBC 12.9 H RBC 4.38 L Hgb 13.3 L MCH MCHC 30.6 L RDW Plt Count 119 L MPV 10.6 H Gran # [place] # (Auto) Baso # (Auto) Lymphocytes % VBG Lactic Acid Chloride 113 H Carbon Dioxide 20 L POC Total CO2 Anion Gap Creatinine POC Creatinine Glucose 108 H Uric Acid 2.4 L Calcium 8.0 L Phosphorus 2.0 L Total Bilirubin GGT 103 H AST ALT 545 H Lactate Dehydrogenase Total Creatine Kinase 98752 H Total Protein 4.9 L Albumin 2.5 L Globulin Triglycerides Urine Protein Urine Ketones Urine Opiates Screen U Benzodiazepines Scrn 10/20/19 10/20/19 10/19/19 05:12 05:12 15:05 WBC 17.1 H RBC 4.44 L Hgb MCH MCHC RDW Plt Count MPV 10.7 H Gran # [place] # (Auto) Baso # (Auto) Lymphocytes % VBG Lactic Acid Chloride 113 H Carbon Dioxide 19 L 18 L POC Total CO2 Anion Gap Creatinine POC Creatinine Glucose 144 H Uric Acid 2.4 L Calcium 7.3 L 7.3 L Phosphorus 1.1 L Total Bilirubin GGT 94 H AST 658 H ALT 382 H Lactate Dehydrogenase 1011 H Total Creatine Kinase 66409 H Total Protein 4.4 L Albumin 2.3 L Globulin 2.1 L Triglycerides Urine Protein Urine Ketones Urine Opiates Screen U Benzodiazepines Scrn 10/19/19 10/19/19 10/19/19 09:15 05:10 05:10 WBC 15.6 H RBC Hgb MCH MCHC RDW Plt Count MPV Gran # [place] # (Auto) Baso # (Auto) Lymphocytes % 11 L VBG Lactic Acid Chloride Carbon Dioxide POC Total CO2 Anion Gap Creatinine POC Creatinine Glucose Uric Acid Calcium Phosphorus Total Bilirubin GGT AST ALT Lactate Dehydrogenase Total Creatine Kinase 21759 H Total Protein Albumin Globulin Triglycerides Urine Protein 100 A Urine Ketones 20 A Urine Opiates Screen U Benzodiazepines Scrn 10/19/19 10/18/19 10/18/19 05:10 22:10 15:02 WBC RBC Hgb MCH MCHC RDW Plt Count MPV Gran # [place] # (Auto) Baso # (Auto) Lymphocytes % VBG Lactic Acid 6.8 H* Chloride Carbon Dioxide 18 L 14 L POC Total CO2 Anion Gap 18.0 H Creatinine 1.3 H 1.3 H POC Creatinine Glucose Uric Acid Calcium 7.3 L 7.3 L Phosphorus Total Bilirubin GGT 165 H AST 1443 H ALT 499 H Lactate Dehydrogenase 1663 H Total Creatine Kinase Total Protein 5.4 L Albumin 2.9 L Globulin Triglycerides 708 H Urine Protein Urine Ketones Urine Opiates Screen U Benzodiazepines Scrn 10/18/19 10/18/19 10/18/19 15:02 14:18 14:18 WBC 25.4 H RBC Hgb MCH 30.4 L MCHC 30.8 L RDW 13.0 L Plt Count MPV 10.1 L Gran # 16.19 H [place] # (Auto) 1.94 H Baso # (Auto) 0.19 H Lymphocytes % VBG Lactic Acid Chloride 94 L Carbon Dioxide 18 L POC Total CO2 21 L Anion Gap 30.0 H Creatinine 2.0 H POC Creatinine 1.8 H Glucose 107 H Uric Acid Calcium Phosphorus Total Bilirubin 0.4 L GGT AST 136 H ALT 90 H Lactate Dehydrogenase Total Creatine Kinase Total Protein Albumin Globulin Triglycerides Urine Protein Urine Ketones Urine Opiates Screen Suspect positive A U Benzodiazepines Scrn Suspect positive A Meds: Medications Acetaminophen (Tylenol) 650 mg MT Q4-6HP PRN; Protocol PRN Reason: Per Pain Protocol/Fever > 101 Last Admin: 08/25/20 05:15 Dose: 650 mg Documented by: Albuterol Sulfate (Ventolin) 2.5 mg NEB Q4HP PRN PRN Reason: Wheezing Last Admin: 10/21/19 07:00 Dose: 2.5 mg Documented by: Ceftriaxone Sodium (Rocephin) 1 gm IV DAILY [facility]; Protocol Last Admin: 10/20/19 09:40 Dose: 1 gm Documented by: Chlorhexidine Gluconate (Peridex) 15 ml SWABMOUTH BID [facility] Last Admin: 10/20/19 20:29 Dose: 15 ml Documented by: Enoxaparin Sodium (Lovenox) 40 mg SQ DAILY [facility] Last Admin: 10/20/19 09:41 Dose: 40 mg Documented by: Famotidine (Pepcid) 20 mg IV Q12 [facility] Last Admin: 10/20/19 20:29 Dose: 20 mg Documented by: Levetiracetam 500 mg/ Sodium (Chloride) 105 mls @ 200 mls/hr IV Q12H [facility] Last Infusion: 10/21/19 07:24 Dose: Infused Documented by: Acetaminophen (Ofirmev) 650 mg in 65 mls @ 130 mls/hr IV Q6HP PRN; Protocol PRN Reason: PAIN/FEVER > 101 Last Infusion: 10/19/19 22:23 Dose: Infused Documented by: Sodium Chloride (Sodium Chloride 0.9%) 1,000 mls @ 250 mls/hr IV .Q4H [facility] Last Admin: 10/21/19 06:21 Dose: 250 mls/hr Documented by: Sodium Chloride (Sodium Chloride 0.9%) 250 mls @ 20 mls/hr IV .[id number] [facility] Last Admin: 10/20/19 22:53 Dose: 20 mls/hr Documented by: Dexmedetomidine HCl 400 mcg/ (Premix) 100 mls @ 4.038 mls/hr IV Q24H [facility]; Protocol Last Admin: 10/21/19 05:38 Dose: 0.6 mcg/kg/hr, 12.115 mls/hr Documented by: Lorazepam (Ativan) 2 mg IV Q30MIN PRN PRN Reason: Seizure Activity Last Admin: 10/20/19 21:20 Dose: 2 mg Documented by: Ondansetron HCl (Zofran) 4 mg IV Q4-6HP PRN; Protocol PRN Reason: Nausea And Vomiting Potassium/Phosphorus/Sodium (Neutra Phos) 2 packet PO BID [facility] Stop: 10/21/19 09:01 Last Admin: 10/20/19 20:29 Dose: 2 packet Documented by: Sodium Chloride (Saline Flush) 10 ml IV Q8 [facility] Last Admin: 10/21/19 05:11 Dose: Not Given Documented by: A/P Assessment and plan (1) Seizure disorder: Status: Inactive Narrative A/P Narrative: A: *Drug overdose on opioids and Benzodiazepines: -Had a heroin overdose in August of this year, was hospitalized at [facility], Ultimately determined to be accidenta -He does have a prescription for clonazepam and that was suspected to be a co-ingestant at that hospitalization. -Currently, patient did have drug paraphernalia when he is found, suspect this is also opioid overdose, also positive for benzodiazepines, thus clonazepam may also be contributing. -No evidence of ethanol, no evidence of acetaminophen. Salicylate level was undetectable. *Mechanical Ventilation: 03/28 above -extubated 10/19 *Seizures: Improved. Loaded with fosphenytoin yesterday, remains on twice daily Keppra. -At presentation, he developed seizures upon arrival to the ED. Received multiple doses of lorazepam in the ED, subsequently loaded with Keppra. That in combination with propofol for sedation has suppressed seizure activity. -According to his mother, no known history of seizures. -May be related to metabolic acidosis or possible anoxic brain injury. -No evidence of hemorrhage, infarction or other finding on CT of the head. *Encephalopathy: Improved. Initially suspected acute anoxic encephalopathy, though postictal state may also be contributing. Given the patient's pH of 7.09 after presentation in the hospital suspect he may have been down for quite some time to develop a metabolic and respiratory acidosis. This likely had concurrent hypoxia. Other causes of encephalopathy include drug toxicity (though no real change with naloxone). -No evidence of infarct or hemorrhage on CT. *Mixed metabolic and respiratory acidosis: Resolving. At presentation, pH 7.09 with PCO2 of 50 with lactate of 6.8. -Given severity of acidosis and elevation of lactate, suspect he was down for a prolonged period. *QUENTIN: Resolved This may represent ATN from hypoxia or hypotension associated with his drug overdose, though given the rapidity of resolution, this may be more prerenal in nature. Fractional excretion of sodium is 0.3% supporting a prerenal etiology. He continues with urine output. *Rhabdomyolysis: Suspect it may be multifactorial from being down, as well as from significant seizure activity. -urine analysis without casts and is maintaining urine output. *QUENTIN: resolved *Asp PNA/Leukocytosis: wbc Improving, afebrile now. *Transaminitis: Suspect this represents shock liver/hypoxic liver damage. P: Continue with Keppra 500 mg twice daily, PRN lorazepam Seizure precautions Continue neurochecks Continue ceftriaxone Continue with hydration, Monitor urine output Follow CK - -ppx: lovenox/ppi Time Spent With Patient Time: Total time spent is greater than 50% in coordination of care (as documented) at patient's floor/unit and/or counseling patient:
[2019-10-21 07:48] LABS: AST/SGOT 937 U/l (0-37); Lactate Dehydrogenase 1394 U/L (94-250)
[2019-10-21 08:11] LABS: Creatine Kinase 23130 IU/L (24-195)
[2019-10-21 08:44] LABS: Basophils % (Manual) 1 % (0-2); Eosinophils % (Manual) 2 % (0-7); Lymphocytes % 18 % (15-49); Monocytes % (Manual) 14 % (1-12); Platelet Estimate DECREASED (NORMAL); RBC Morphology NORMAL (NORMAL); Segmented Neutrophils % 65 % (38-78)
[2019-10-21] MEDS ORDERED: cefTRIAXone 1 GM VIAL IV SCH (09:00)
[2019-10-21] MEDS: ENOXAPARIN 40 MG/0.4 ML SYRINGE SQ SCH (09:09)
[2019-10-21] MEDS: PHOSPHORUS 250 MG TABLET PO SCH ×4 (09:10→20:38)
[2019-10-21] MEDS: SODIUM BICARBONATE 650 MG TABLET PO SCH ×2 (09:10→20:38)
[2019-10-21] MEDS: NEUTRA PHOS 1 PACKET PO SCH (09:11)
[2019-10-21] MEDS: FAMOTIDINE/PF 20 MG/2 ML VIAL IV SCH ×2 (09:17→20:38)
[2019-10-21] MEDS ORDERED: SODIUM BICARBONATE VIAL 150 MEQ in DEXTROSE 5% IN WATER 850 ML IV SCH (10:15)
[2019-10-21] MEDS: levETIRAcetam 500 MG in 0.9 % SODIUM CHLORIDE 100 ML IV SCH ×2 (10:34→20:38)
[2019-10-21] MEDS: cefTRIAXone 2 GM in DEXTROSE 5% IN WATER 50 ML IV SCH (10:35)
[2019-10-21] MEDS: clonazePAM 1 MG TABLET PO PRN ×2 (10:45→20:43)
[2019-10-21] MEDS: CHLORHEXIDINE GLUCONATE 1 ML ORAL.SOL SWABMOUTH SCH ×2 (10:46→20:39)
[2019-10-21] MEDS: NICOTINE 21 MG PATCH TOPICAL SCH (15:17)
[2019-10-22] MEDS: 0.9 % SODIUM CHLORIDE 10 ML SYRINGE IV SCH ×3 (04:04→22:23)
--- NOTE | 2019-10-22 06:41 | XRay Report ---
INDICATION: Mechanically Ventilated TECHNIQUE: AP portable semiupright chest x-ray COMPARISON: Previous chest x-rays dated 10/20/2019, 10/19/2019, 10/18/2019 FINDINGS:Status post extubation Lungs:Improved left lower lobe. There is mild residual infiltrate but the left lower lobe is better aerated than on previous examinations. Right lung is negative Heart, vascular:No significant cardiomegaly. Pulmonary vascularity is normal. No pulmonary edema or pulmonary congestion Mediastinum, sanya:No mediastinal widening. No hilar mass Pleura:No pleural fluid. No pleural-based mass or calcification Skeletal:Negative. IMPRESSION: 1. Status post extubation 2. Improved left lower lobe. Residual infiltrate as above Interpreted and Authenticated by: Damien Ortega 10/22/19
[2019-10-22 06:50] LABS: Basophils # (Auto) 0.04 K/mcL (0.00-0.30); Basophils % (Auto) 0.4 % (0.0-2.0); Eosinophils # (Auto) 0.18 K/mcL (0.00-0.70); Eosinophils % (Auto) 1.7 % (0.0-7.0); Granulocytes % (Auto) 66.5 % (38.0-78.0); Hematocrit 40.2 % (40.1-51.0); Lymphocytes # (Auto) 2.47 K/mcL (1.50-4.80); Lymphocytes % (Auto) 23.2 % (15.5-49.0); Mean Cell Volume 88.9 fL (80.0-100.0); Mean Corpuscular HGB Conc 34.8 g/dL (31.0-36.0); Mean Platelet Volume 10.4 fL (7.4-10.4); Monocytes # (Auto) 0.87 K/mcL (0.10-0.90); Monocytes % (Auto) 8.2 % (1.0-12.0); Platelet Count 181 K/mcL (140-440); RBC 4.52 M/mcL (4.63-6.08); Red Cell Distribution Width 13.2 % (11.5-14.5); WBC 10.7 K/mcL (4.50-11.00)
[2019-10-22 07:28] LABS: ALT/SGPT 507 U/l (0-40); Albumin 2.5 gm/dL (3.2-5.2); Alkaline Phosphatase 97 U/L (39-117); Bilirubin,Total 0.4 mg/dL (0.0-1.0); Calcium 7.9 mg/dl (8.6-10.4); Chloride 104 mmol/L (96-108); Globulin 2.4 gm/dL (2.2-3.7); Glomerular Filtration Rate 131; Glucose 114 mg/dL (70-105); Triglycerides 119 mg/dl (<150); Uric Acid 2.6 mg/dL (2.5-8.0)
--- NOTE | 2019-10-22 07:37 | Internal Med Progress Note ---
SUBJECTIVE Subjective Patient information: Note initiated : 10/22/19 at 7:35 am Service Date, if different from initiated Date: [] Patient: Lucas Sims a 24 y/o M admitted on 10/18/19 for code. Chief Complaint: [] Interval history: History of present illness: Mr. Sims is a 24 year old M with a history of substance abuse, including methamphetamine and heroin, with a recent heroin and probable clonazepam overdose last month, was hospitalized at [facility]. At that time, he was evaluated by mental health and was determined to be an accidental overdose. History is obtained in reviewing those records, and speaking to his mother at bedside. Of note the patient originally presented as Damien Lambert. His name is been corrected. The patient does have a separate MRN with some data from 2013 and 2014 also in the system. The patient was found down in the restroom at the grocery store next-door to the hospital. There was drug paraphernalia present. His pupils were initially pinpoint. He received Narcan intranasally x2 by EMS without significant response. As he arrived at the emergency department he began having seizures and received lorazepam. After arrival, his pupils are more responsive though the patient did not respond to physical or verbal stimuli. He subsequently started developing more seizures. He has now been loaded with a gram of Keppra, as well as several further doses of Lorazepam, his seizures are starting to taper off. Significant findings include normal blood pressure, tachycardia up to the 140s during seizure episodes, leukocytosis to 25,000, pH 7.09, PCO2 50 and PO2 428 on ABG, lactate of 6.8 and creatinine of 2.0. Patient is being admitted for further management of apparent drug overdose. Complete past medical, surgical, family and social history not obtainable due to the patient's encephalopathy and being intubated. 10/18 Patient remains intubated. When sedation lightened, he is able to follow some commands. However times he develops clenched fist, raises his arms, tends to turn to one side which last for several seconds and then he becomes unresponsive. Concerned he may be having some partial seizures. Urine noted to become cloudy brownish. Repeat urine analysis with protein, no red cells, no casts. Given urine findings, CPK sent, significant rhabdomyolysis 60,000. Renal function has normalized however. 10/19 Patient was stable overnight, no further possible seizure activity. This morning still moving around on significant doses of propofol. Undergoing weaning parameters. Showing some agitation, but should be able to be extubated. Continuing to maintain good urine output. Creatinine improved. CPKs decreased to 17,000. Pertinent ROS: Unobtainable, patient intubated 10/20 Precedex being weaned down. Clarifying home medications. Leukocytosis improved again. Phosphorus improving. Transaminitis mild bump from yesterday but improved from several days ago. CK bumped from yesterday. Good urine output, clear now. 10/21 Coughing up some phlegm and also had a little bit of diarrhea yesterday, no other complaints. Sitting up in chair eating breakfast. Sputum culture no growth. Left lower lobe infiltrate improving. Leukocytosis resolved. Liver enzymes slightly improved from yesterday. CK mildly improved from yesterday Review of Systems: denies headache/fever/chills/nausea/vomiting/chest or abdominal pain/dyspnea. Otherwise see above. Constitutional Vitals: Vital Signs Temp Pulse Resp BP Pulse Ox 98.8 F 91 H 20 130/64 97 10/22/19 07:04 10/22/19 07:04 10/22/19 00:00 10/22/19 07:04 10/22/19 07:04 Period Temp Pulse Resp BP Sys/Patel Pulse Ox Last 24 Hr 96.8 F-99.6 F 63-91 16-23 95-150/52-96 97-100 Intake and Output 10/21/19 10/22/19 10/22/19 21:59 05:59 13:59 Intake Total 1145 1780 680 Output Total 1800 1925 800 Balance -655 -145 -120 Weight 84.096 kg Intake & Output: Intake & Output 10/21/19 10/22/19 10/22/19 21:59 05:59 13:59 Intake Total 1145 1780 680 Output Total 1800 1925 800 Balance -655 -145 -120 Weight 84.096 kg Intake: IV 105 1000 Sodium Bicarbonate Vial 150 Meq 1000 In Dextrose 5% in Water 850 ml @ 60 mls/hr IV Q20H PONCE Rx#: [id number] Keppra 500 mg In Sodium 105 Chloride 0.9% 100 ml @ 200 mls/ hr IV Q12H PONCE Rx#:[id number] Oral 1040 480 680 GI Tube Flush 300 Output: Void Amount 800 1925 800 Urine/Stool Mix 1000 Other: Meal Lunch Dinner Percent of Meal Consumed 50% 50% Feeding Ability Needs Supervision Urine Appearance Clear Clear Clear Urine Color Pale Pale Dark Yellow Urine Odor Normal Stool Size Large Moderate Stool Color Yellow Brown Chris Colored Yellow Stool Consistency Watery Soft Loose Loose # Voids 1 Exam: General: alert and Awake, No acute Distress Eyes/N/T: EOMI, Head/Neck: neck supple, CV: RRR, No murmurs, Pulm: Clear b/l, no wheezing/rhonchi/rales Abd: soft, nontender, +BS x4 Ext: no clubbing/cyanosis/edema Neuro: awake, no focal deficits, moves all extremities Skin: warm/dry OBJ DATA Labs CBC & Chem 7: 10/22/19 05:02 10/22/19 05:02 Labs: Abnormal Lab Results 10/22/19 10/22/19 10/21/19 05:02 05:02 04:55 WBC RBC 4.52 L Hgb MCHC Plt Count MPV Lymphocytes % Monocytes % (Manual) Platelet Estimate Chloride 113 H Carbon Dioxide 20 L Glucose 114 H 108 H Uric Acid 2.4 L Calcium 7.9 L 8.0 L Phosphorus 2.0 L GGT 116 H 103 H AST 937 H ALT 507 H 545 H Lactate Dehydrogenase 1394 H Total Creatine Kinase Total Protein 4.9 L 4.9 L Albumin 2.5 L 2.5 L Globulin Urine Protein Urine Ketones 10/21/19 10/21/19 10/20/19 04:55 04:55 05:12 WBC 12.9 H RBC 4.38 L Hgb 13.3 L MCHC 30.6 L Plt Count 119 L MPV 10.6 H Lymphocytes % Monocytes % (Manual) 14 H Platelet Estimate Decreased A Chloride Carbon Dioxide Glucose Uric Acid Calcium Phosphorus GGT AST ALT Lactate Dehydrogenase Total Creatine Kinase 35710 H 18689 H Total Protein Albumin Globulin Urine Protein Urine Ketones 10/20/19 10/20/19 10/19/19 05:12 05:12 15:05 WBC 17.1 H RBC 4.44 L Hgb MCHC Plt Count MPV 10.7 H Lymphocytes % Monocytes % (Manual) Platelet Estimate Chloride 113 H Carbon Dioxide 19 L 18 L Glucose 144 H Uric Acid 2.4 L Calcium 7.3 L 7.3 L Phosphorus 1.1 L GGT 94 H AST 658 H ALT 382 H Lactate Dehydrogenase 1011 H Total Creatine Kinase 61061 H Total Protein 4.4 L Albumin 2.3 L Globulin 2.1 L Urine Protein Urine Ketones 10/19/19 10/19/19 10/19/19 09:15 05:10 05:10 WBC RBC Hgb MCHC Plt Count MPV Lymphocytes % 11 L Monocytes % (Manual) Platelet Estimate Chloride Carbon Dioxide Glucose Uric Acid Calcium Phosphorus GGT AST ALT Lactate Dehydrogenase Total Creatine Kinase 08790 H Total Protein Albumin Globulin Urine Protein 100 A Urine Ketones 20 A Meds: Medications Acetaminophen (Tylenol) 650 mg DE Q4-6HP PRN; Protocol PRN Reason: Per Pain Protocol/Fever > 101 Last Admin: 10/19/19 05:15 Dose: 650 mg Documented by: Albuterol Sulfate (Ventolin) 2.5 mg NEB Q4HP PRN PRN Reason: Wheezing Last Admin: 10/21/19 12:18 Dose: 2.5 mg Documented by: Chlorhexidine Gluconate (Peridex) 15 ml SWABMOUTH BID [facility] Last Admin: 10/21/19 20:39 Dose: 15 ml Documented by: Clonazepam (Klonopin) 1 mg PO BIDP PRN PRN Reason: Anxiety Last Admin: 10/21/19 20:43 Dose: 1 mg Documented by: Enoxaparin Sodium (Lovenox) 40 mg SQ DAILY [facility] Last Admin: 10/21/19 09:09 Dose: 40 mg Documented by: Famotidine (Pepcid) 20 mg IV Q12 [facility] Last Admin: 10/21/19 20:38 Dose: 20 mg Documented by: Levetiracetam 500 mg/ Sodium (Chloride) 105 mls @ 200 mls/hr IV Q12H [facility] Last Infusion: 10/21/19 21:15 Dose: Infused Documented by: Acetaminophen (Ofirmev) 650 mg in 65 mls @ 130 mls/hr IV Q6HP PRN; Protocol PRN Reason: PAIN/FEVER > 101 Last Infusion: 10/19/19 22:23 Dose: Infused Documented by: Ceftriaxone Sodium 2 gm/ (Dextrose) 50 mls @ 100 mls/hr IV Q24H [facility] Last Infusion: 10/21/19 11:10 Dose: Infused Documented by: Lorazepam (Ativan) 2 mg IV Q30MIN PRN PRN Reason: Seizure Activity Last Admin: 10/20/19 21:20 Dose: 2 mg Documented by: Nicotine (Nicoderm) 21 mg TOPICAL DAILY@1000 PONCE Last Admin: 10/21/19 15:17 Dose: 21 mg Documented by: Ondansetron HCl (Zofran) 4 mg IV Q4-6HP PRN; Protocol PRN Reason: Nausea And Vomiting Sodium Chloride (Saline Flush) 10 ml IV Q8 [facility] Last Admin: 10/22/19 04:04 Dose: Not Given Documented by: A/P Assessment and plan (1) Seizure: Status: Acute Narrative A/P Narrative: A: *Drug overdose on opioids/Benzodiazepines: -Had a heroin overdose in August of this year, was hospitalized at [facility], Ultimately determined to be accidenta -He does have a prescription for clonazepam and that was suspected to be a co-ingestant at that hospitalization. -Currently, patient did have drug paraphernalia when he is found, suspect this is also opioid overdose, also positive for benzodiazepines, thus clonazepam may also be contributing. -No evidence of ethanol, no evidence of acetaminophen. Salicylate level was undetectable. *Mechanical Ventilation: 03/28 above -extubated 10/19 *Seizures: Improved. Loaded with fosphenytoin yesterday, remains on twice daily Keppra. -At presentation, he developed seizures upon arrival to the ED. Received multiple doses of lorazepam in the ED, subsequently loaded with Keppra. That in combination with propofol for sedation has suppressed seizure activity. -According to his mother, no known history of seizures. -May be related to metabolic acidosis or possible anoxic brain injury. -No evidence of hemorrhage, infarction or other finding on CT of the head. *Encephalopathy: Improved. Initially suspected acute anoxic encephalopathy, though postictal state may also be contributing. Given the patient's pH of 7.09 after presentation in the hospital suspect he may have been down for quite some time to develop a metabolic and respiratory acidosis. This likely had concurrent hypoxia. Other causes of encephalopathy include drug toxicity (though no real change with naloxone). -No evidence of infarct or hemorrhage on CT. *Mixed metabolic and respiratory acidosis: Resolved. At presentation, pH 7.09 with PCO2 of 50 with lactate of 6.8. -Given severity of acidosis and elevation of lactate, suspect he was down for a prolonged period. *QUENTIN: Resolved This may represent ATN from hypoxia or hypotension associated with his drug overdose, though given the rapidity of resolution, this may be more prerenal in nature. Fractional excretion of sodium is 0.3% supporting a prerenal etiology. He continues with urine output. *Rhabdomyolysis: multifactorial from being down, as well as from significant seizure activity. -urine analysis without casts and is maintaining urine output. -CK slowly trending down *QUENTIN: resolved *Asp PNA/Leukocytosis: wbc Improving, afebrile now. *Transaminitis: Suspect this represents shock liver/hypoxic liver damage. P: Continue with Keppra 500 mg twice daily, PRN lorazepam Seizure precautions Continue ceftriaxone hydration, Monitor urine output Follow CK - -ppx: lovenox/ppi Time Spent With Patient Time: Total time spent is greater than 50% in coordination of care (as d ocumented) at patient's floor/unit and/or counseling patient:
[2019-10-22 07:42] LABS: Creatine Kinase 19707 IU/L (24-195)
[2019-10-22 07:43] LABS: AST/SGOT 890 U/l (0-37); Bilirubin,Direct < 0.2 mg/dL (0.0-0.3); Blood Urea Nitrogen 4 mg/dl (6-20); Carbon Dioxide 25 mmol/L (22-30); Lactate Dehydrogenase 1514 U/L (94-250); Phosphorous 2.3 mg/dL (2.7-4.5)
[2019-10-22] MEDS: cefTRIAXone 2 GM in DEXTROSE 5% IN WATER 50 ML IV SCH (09:00)
[2019-10-22] MEDS ORDERED: MAGNESIUM SULFATE 2 GM/50 ML BAG IV ONE (09:26)
[2019-10-22] MEDS ORDERED: POTASSIUM CHLORIDE 20 MEQ TABLET PO ONE (09:27)
[2019-10-22] MEDS ORDERED: 0.9 % SODIUM CHLORIDE 1,000 ML IV SCH ×2 (10:00→10:42)
[2019-10-22] MEDS: FAMOTIDINE/PF 20 MG/2 ML VIAL IV SCH ×2 (10:01→22:20)
[2019-10-22] MEDS: NICOTINE 21 MG PATCH TOPICAL SCH (10:01)
[2019-10-22] MEDS: levETIRAcetam 500 MG in 0.9 % SODIUM CHLORIDE 100 ML IV SCH (10:01)
[2019-10-22] MEDS: ENOXAPARIN 40 MG/0.4 ML SYRINGE SQ SCH (10:24)
[2019-10-22] MEDS: CHLORHEXIDINE GLUCONATE 1 ML ORAL.SOL SWABMOUTH SCH (10:24)
[2019-10-22] MEDS ORDERED: ACETAMINOPHEN 650 MG SUPP.RECT PR PRN (10:42)
[2019-10-22] MEDS ORDERED: LORazepam 2 MG/ML VIAL IV PRN (10:42)
[2019-10-22] MEDS ORDERED: ONDANSETRON 4 MG/2 ML VIAL IV PRN (10:42)
[2019-10-22] MEDS ORDERED: ALBUTEROL SULFATE 2.5 MG/3 ML NEBULIZER NEB PRN (10:42)
[2019-10-22] MEDS ORDERED: ACETAMINOPHEN 650 MG/65 ML BOTTLE IV PRN (10:42)
--- NOTE | 2019-10-22 11:18 | Discharge Summary ---
Discharge Provider Provider Patient information: Note initiated : 10/22/19 at 11:16 am Service Date, if different from initiated Date: [] Patient: Lucas Sims 24 y/o M admitted on 10/18/19 for code. Chief Complaint: [] Date of admission: 10/18/19 16:30 Discharge date: 10/24/19 Consults: 10/18/19 14:37 Consult to Physician [CONS] Stat Comment: Consulting Provider: Sonja Kaur Reason For Exam: Physician to Consult Discharge Meds Discharge Medications Home Medications clonazepam 1 mg PO BIDP PRN 10/18/19 [History Confirmed 10/22/19 Last Taken Unknown] hydroxyzine HCl See Rx Instructions .ROUTE .COMPLEX PRN 10/22/19 [History Confirmed 10/22/19 Last Taken Unknown] levetiracetam 500 mg PO BID #60 tab 10/23/19 [Rx Last Taken Unknown] COURSE Hospital Course Hospital course: History of present illness: Mr. Sims is a 24 year old M with a history of substance abuse, including methamphetamine and heroin, with a recent heroin and probable clonazepam overdose last month, was hospitalized at [facility]. At that time, he was evaluated by mental health and was determined to be an accidental overdose. History is obtained in reviewing those records, and speaking to his mother at bedside. Of note the patient originally presented as Damien Lambert. His name is been corrected. The patient does have a separate MRN with some data from 2013 and 2014 also in the system. The patient was found down in the restroom at the grocery store next-door to the hospital. There was drug paraphernalia present. His pupils were initially pinpoint. He received Narcan intranasally x2 by EMS without significant response. As he arrived at the emergency department he began having seizures and received lorazepam. After arrival, his pupils are more responsive though the patient did not respond to physical or verbal stimuli. He subsequently started developing more seizures. He has now been loaded with a gram of Keppra, as well as several further doses of Lorazepam, his seizures are starting to taper off. Significant findings include normal blood pressure, tachycardia up to the 140s during seizure episodes, leukocytosis to 25,000, pH 7.09, PCO2 50 and PO2 428 on ABG, lactate of 6.8 and creatinine of 2.0. Patient is being admitted for further management of apparent drug overdose. Complete past medical, surgical, family and social history not obtainable due to the patient's encephalopathy and being intubated. 10/18 Patient remains intubated. When sedation lightened, he is able to follow some commands. However times he develops clenched fist, raises his arms, tends to turn to one side which last for several seconds and then he becomes unresponsive. Concerned he may be having some partial seizures. Urine noted to become cloudy brownish. Repeat urine analysis with protein, no red cells, no casts. Given urine findings, CPK sent, significant rhabdomyolysis 60,000. Renal function has normalized however. 10/19 Patient was stable overnight, no further possible seizure activity. This morning still moving around on significant doses of propofol. Undergoing weaning parameters. Showing some agitation, but should be able to be extubated. Continuing to maintain good urine output. Creatinine improved. CPKs decreased to 17,000. Pertinent ROS: Unobtainable, patient intubated 10/20 Precedex being weaned down. Clarifying home medications. Leukocytosis improved again. Phosphorus improving. Transaminitis mild bump from yesterday but improved from several days ago. CK bumped from yesterday. Good urine output, clear now. 10/21 Coughing up some phlegm and also had a little bit of diarrhea yesterday, no other complaints. Sitting up in chair eating breakfast. Sputum culture no growth. Left lower lobe infiltrate improving. Leukocytosis resolved. Liver enzymes slightly improved from yesterday. CK mildly improved from yesterday 10/22 Patient doing well. No new complaints. CK trending down but still quite high. We will watch 1 more night and plan on discharge in the morning if CK continues current trend. 10/23 Well. CK improving nicely. Liver enzymes continue to improve. No further seizures. Outpatient follow-up with neurology continue Keppra until seen by neurology, doubt he will need long-term antiepileptics. Assessment: *Drug overdose on opioids/Benzodiazepines: -Had a heroin overdose in August of this year, was hospitalized at [facility], Ultimately determined to be accidenta -He does have a prescription for clonazepam and that was suspected to be a co-ingestant at that hospitalization. -Currently, patient did have drug paraphernalia when he is found, suspect this is also opioid overdose, also positive for benzodiazepines, thus clonazepam may also be contributing. -No evidence of ethanol, no evidence of acetaminophen. Salicylate level was undetectable. *Mechanical Ventilation: 2/2 above -extubated 10/19 *Seizures: Improved. Loaded with fosphenytoin yesterday, remains on twice daily Keppra. -At presentation, he developed seizures upon arrival to the ED. Received multiple doses of lorazepam in the ED, subsequently loaded with Keppra. That in combination with propofol for sedation has suppressed seizure activity. -According to his mother, no known history of seizures. -May be related to metabolic acidosis or possible anoxic brain injury. -No evidence of hemorrhage, infarction or other finding on CT of the head. *Encephalopathy: Improved. Initially suspected acute anoxic encephalopathy, though postictal state may also be contributing. Given the patient's pH of 7.09 after presentation in the hospital suspect he may have been down for quite some time to develop a metabolic and respiratory acidosis. This likely had concurrent hypoxia. Other causes of encephalopathy include drug toxicity (though no real change with naloxone). -No evidence of infarct or hemorrhage on CT. *Mixed metabolic and respiratory acidosis: Resolved. At presentation, pH 7.09 with PCO2 of 50 with lactate of 6.8. -Given severity of acidosis and elevation of lactate, suspect he was down for a prolonged period. *QUENTIN: Resolved This may represent ATN from hypoxia or hypotension associated with his drug overdose, though given the rapidity of resolution, this may be more prerenal in nature. Fractional excretion of sodium is 0.3% supporting a prerenal etiology. He continues with urine output. *Rhabdomyolysis: multifactorial from being down, as well as from significant seizure activity. *QUENTIN: resolved *Asp PNA/Leukocytosis: wbc Improving, afebrile now. *Transaminitis: Suspect this represents shock liver/hypoxic liver damage. improved Discharge diagnosis: Drug overdose seizures mechanical ventilation ecephalopathy rhabdomyolysis Secondary discharge diagnosis: Acute kidney injury aspiration pneumonia transaminitis Time Spent with Patient Time attestation: Total time spent providing and/or coordinating discharge services: Time spent: Greater than 30 minutes EXAM Constitutional Vitals: Temp Pulse Resp BP Pulse Ox 98.8 F 91 H 20 135/90 97 10/22/19 07:04 10/22/19 07:04 10/22/19 00:00 10/22/19 10:01 10/22/19 07:04 Discharge Data Data Completed and Pending Labs on day of discharge: Labs from last 24 hours 10/22/19 10/22/19 10/22/19 05:02 05:02 05:02 WBC 10.7 RBC 4.52 L Hgb 14.0 Hct 40.2 MCV 88.9 MCH 31.0 MCHC 34.8 RDW 13.2 Plt Count 181 MPV 10.4 Gran % 66.5 Lymph % (Auto) 23.2 [place] % (Auto) 8.2 Eos % (Auto) 1.7 Baso % (Auto) 0.4 Gran # 7.09 Lymph # (Auto) 2.47 [place] # (Auto) 0.87 Eos # (Auto) 0.18 Baso # (Auto) 0.04 Sodium 141 Potassium 3.1 L Chloride 104 Carbon Dioxide 25 Anion Gap 12.0 BUN 4 L Creatinine 0.7 GFR Calculation 131 Glucose 114 H Uric Acid 2.6 Calcium 7.9 L Phosphorus 2.3 L Magnesium 1.5 L Total Bilirubin 0.4 Direct Bilirubin < 0.2 GGT 116 H AST 890 H ALT 507 H Alkaline Phosphatase 97 Lactate Dehydrogenase 1514 H Total Creatine Kinase 03453 H Total Protein 4.9 L Albumin 2.5 L Globulin 2.4 Albumin/Globulin Ratio 1.0 Triglycerides 119 Discharge Plan Patient/Caregiver Discharge Instructions Activity: increase activity as tolerated Diet: Regular Diet Instructions: Prescription Opioid Overdose (GEN), Benzodiazepine Overdose (GEN) Activity Restrictions/Additional Instructions: This discharge packet is provided to you to help keep you informed about your care. We want to ensure you get everything you need when you go home. You will also be receiving a call from us in a few days to follow up with you and see how you are doing since your discharge. This gives us a chance to listen to any concerns you maybe experiencing since you were discharged or any additional needs you may have, as well as providing us feedback on your care experience. We strive to always provide excellent care and thank you for your feedback and for choosing [facility]. [facility] [employer]'s Crisis Line is: [phone] if you feel the need to call them, The Local office is Referral to see neurologist in 3 to 10 days for seizures. Prescriptions: New levetiracetam 500 mg Tablet 500 mg PO BID Qty: 60 RF: 0 Continued clonazepam 1 mg tablet 1 mg PO BIDP PRN (Reason: Anxiety) RF: 0 hydroxyzine HCl 25 mg Tablet See Rx Instructions .ROUTE .COMPLEX PRN (Reason: Anxiety) RF: 0 Follow Up Plan Follow up with: Pat Hager ARNP [Nurse Practitioner] - 11/02/19 7:30 am (Please arrive 15 minutes early) Patient Disposition: Home, Self-Care Rehab Potential: Undetermined Overall status at discharge: patient is progressing back to baseline Discharge Orders: Discharge Order (Routine); Ordered 10/24/19 Ordered By: Eric Munoz
[2019-10-22] MEDS: clonazePAM 1 MG TABLET PO PRN ×2 (15:56→22:22)
[2019-10-22] MEDS ORDERED: levETIRAcetam 500 MG TABLET PO SCH (21:00)
[2019-10-22] MEDS: levETIRAcetam 500 MG TABLET PO SCH (22:23)
[2019-10-23] MEDS: 0.9 % SODIUM CHLORIDE 10 ML SYRINGE IV SCH ×3 (06:11→20:17)
[2019-10-23 07:50] LABS: ALT/SGPT 425 U/l (0-40); AST/SGOT 600 U/l (0-37); Albumin 2.8 gm/dL (3.2-5.2); Albumin/Globulin Ratio 1.2 (1.0-2.3); Alkaline Phosphatase 80 U/L (39-117); Bilirubin,Direct < 0.2 mg/dL (0.0-0.3); Bilirubin,Total 0.3 mg/dL (0.0-1.0); Calcium 8.9 mg/dl (8.6-10.4); Carbon Dioxide 26 mmol/L (22-30); Chloride 107 mmol/L (96-108); Globulin 2.3 gm/dL (2.2-3.7); Glomerular Filtration Rate 131; Glucose 101 mg/dL (70-105); Triglycerides 116 mg/dl (<150)
[2019-10-23 08:00] LABS: Blood Urea Nitrogen 7 mg/dl (6-20); Phosphorous 3.1 mg/dL (2.7-4.5)
[2019-10-23 08:01] LABS: Lactate Dehydrogenase 1305 U/L (94-250)
[2019-10-23] MEDS: cefTRIAXone 2 GM in DEXTROSE 5% IN WATER 50 ML IV SCH (09:47)
[2019-10-23] MEDS: ENOXAPARIN 40 MG/0.4 ML SYRINGE SQ SCH (09:47)
[2019-10-23] MEDS: FAMOTIDINE/PF 20 MG/2 ML VIAL IV SCH ×2 (09:47→20:16)
[2019-10-23] MEDS: NICOTINE 21 MG PATCH TOPICAL SCH (09:48)
[2019-10-23] MEDS: levETIRAcetam 500 MG TABLET PO SCH ×2 (10:27→20:16)
--- NOTE | 2019-10-23 12:08 | Internal Med Progress Note ---
SUBJECTIVE Subjective Patient information: Note initiated : 10/23/19 at 12:06 pm Service Date, if different from initiated Date: [] Patient: Lucas Sims a 24 y/o M admitted on 10/18/19 for code. Chief Complaint: [] Interval history: History of present illness: Mr. Sims is a 24 year old M with a history of substance abuse, including methamphetamine and heroin, with a recent heroin and probable clonazepam overdose last month, was hospitalized at [facility]. At that time, he was evaluated by mental health and was determined to be an accidental overdose. History is obtained in reviewing those records, and speaking to his mother at bedside. Of note the patient originally presented as Damien Lambert. His name is been corrected. The patient does have a separate MRN with some data from 2013 and 2014 also in the system. The patient was found down in the restroom at the grocery store [place] to the hospital. There was drug paraphernalia present. His pupils were initially pinpoint. He received Narcan intranasally x2 by EMS without significant response. As he arrived at the emergency department he began having seizures and received lorazepam. After arrival, his pupils are more responsive though the patient did not respond to physical or verbal stimuli. He subsequently started developing more seizures. He has now been loaded with a gram of Keppra, as well as several further doses of Lorazepam, his seizures are starting to taper off. Significant findings include normal blood pressure, tachycardia up to the 140s during seizure episodes, leukocytosis to 25,000, pH 7.09, PCO2 50 and PO2 428 on ABG, lactate of 6.8 and creatinine of 2.0. Patient is being admitted for further management of apparent drug overdose. Complete past medical, surgical, family and social history not obtainable due to the patient's encephalopathy and being intubated. 10/18 Patient remains intubated. When sedation lightened, he is able to follow some commands. However times he develops clenched fist, raises his arms, tends to turn to one side which last for several seconds and then he becomes unresponsive. Concerned he may be having some partial seizures. Urine noted to become cloudy brownish. Repeat urine analysis with protein, no red cells, no casts. Given urine findings, CPK sent, significant rhabdomyolysis 60,000. Renal function has normalized however. 10/19 Patient was stable overnight, no further possible seizure activity. This morning still moving around on significant doses of propofol. Undergoing weaning parameters. Showing some agitation, but should be able to be extubated. Continuing to maintain good urine output. Creatinine improved. CPKs decreased to 17,000. Pertinent ROS: Unobtainable, patient intubated 10/20 Precedex being weaned down. Clarifying home medications. Leukocytosis improved again. Phosphorus improving. Transaminitis mild bump from yesterday but improved from several days ago. CK bumped from yesterday. Good urine output, clear now. 10/21 Coughing up some phlegm and also had a little bit of diarrhea yesterday, no other complaints. Sitting up in chair eating breakfast. Sputum culture no growth. Left lower lobe infiltrate improving. Leukocytosis resolved. Liver enzymes slightly improved from yesterday. CK mildly improved from yesterday 10/22 Patient doing well. No new complaints. CK trending down but still quite high. We will watch 1 more night and plan on discharge in the morning if CK continues current trend. Review of Systems: denies headache/fever/chills/nausea/vomiting/chest or abdominal pain/dyspnea. Otherwise see above. Constitutional Vitals: Vital Signs Temp Pulse Resp BP Pulse Ox 99.7 F H 77 20 143/84 100 10/23/19 08:01 10/23/19 04:01 10/23/19 08:01 10/23/19 08:01 10/23/19 08:01 Period Temp Pulse Resp BP Sys/Patel Pulse Ox Last 24 Hr 98.1 F-99.7 F 77-88 16-20 135-148/75-97 97-100 Intake and Output 10/22/19 10/23/19 10/23/19 21:59 05:59 13:59 Intake Total 420 1000 1550 Output Total 450 1750 1800 Balance -30 -750 -250 Weight 85.094 kg Intake & Output: Intake & Output 10/22/19 10/23/19 10/23/19 21:59 05:59 13:59 Intake Total 420 1000 1550 Output Total 450 1750 1800 Balance -30 -750 -250 Weight 85.094 kg Intake: IV 1000 50 Sodium Chloride 0.9% 1,000 ml @ 1000 75 mls/hr IV .[id number] [facility] Rx#: [id number] Rocephin 2 gm In Dextrose 5% in 50 Water 50 ml @ 100 mls/hr IV Q24H [facility] Rx#:[id number] Oral 1500 GI Tube Flush 420 Output: Void Amount 450 1750 1800 Other: Meal Dinner Breakfast Percent of Meal Consumed 100% 100% Feeding Ability Independent Independent Urine Appearance Clear Clear Urine Color Bright Yellow Pale Urine Odor Normal Normal Exam: General: alert and Awake, No acute Distress Eyes/N/T: EOMI, Head/Neck: neck supple, CV: RRR, No murmurs, Pulm: Clear b/l, no wheezing/rhonchi/rales Abd: soft, nontender, +BS x4 Ext: no clubbing/cyanosis/edema Neuro: awake, no focal deficits, moves all extremities Skin: warm/dry OBJ DATA Labs CBC & Chem 7: 10/22/19 05:02 10/23/19 05:15 Labs: Abnormal Lab Results 10/23/19 10/23/19 10/22/19 05:15 05:15 05:02 WBC RBC Hgb MCHC Plt Count MPV Monocytes % (Manual) Platelet Estimate Potassium 3.1 L Chloride Carbon Dioxide BUN 4 L Glucose 114 H Uric Acid Calcium 7.9 L Phosphorus 2.3 L Magnesium 1.5 L GGT 113 H 116 H AST 600 H 890 H ALT 425 H 507 H Lactate Dehydrogenase 1305 H 1514 H Total Creatine Kinase 88813 H Total Protein 5.1 L 4.9 L Albumin 2.8 L 2.5 L 10/22/19 10/22/19 10/21/19 05:02 05:02 04:55 WBC RBC 4.52 L Hgb MCHC Plt Count MPV Monocytes % (Manual) Platelet Estimate Potassium Chloride 113 H Carbon Dioxide 20 L BUN Glucose 108 H Uric Acid 2.4 L Calcium 8.0 L Phosphorus 2.0 L Magnesium GGT 103 H AST 937 H ALT 545 H Lactate Dehydrogenase 1394 H Total Creatine Kinase 85949 H Total Protein 4.9 L Albumin 2.5 L 10/21/19 10/21/19 04:55 04:55 WBC 12.9 H RBC 4.38 L Hgb 13.3 L MCHC 30.6 L Plt Count 119 L MPV 10.6 H Monocytes % (Manual) 14 H Platelet Estimate Decreased A Potassium Chloride Carbon Dioxide BUN Glucose Uric Acid Calcium Phosphorus Magnesium GGT AST ALT Lactate Dehydrogenase Total Creatine Kinase 83912 H Total Protein Albumin Meds: Medications Acetaminophen (Tylenol) 650 mg TX Q4-6HP PRN; Protocol PRN Reason: Per Pain Protocol/Fever > 101 Albuterol Sulfate (Ventolin) 2.5 mg NEB Q4HP PRN PRN Reason: Wheezing Clonazepam (Klonopin) 1 mg PO BIDP PRN PRN Reason: Anxiety Last Admin: 10/22/19 22:22 Dose: 1 mg Documented by: Enoxaparin Sodium (Lovenox) 40 mg SQ DAILY [facility] Last Admin: 10/23/19 09:47 Dose: 40 mg Documented by: Famotidine (Pepcid) 20 mg IV Q12 [facility] Last Admin: 10/23/19 09:47 Dose: 20 mg Documented by: Ceftriaxone Sodium 2 gm/ (Dextrose) 50 mls @ 100 mls/hr IV Q24H [facility] Last Infusion: 10/23/19 10:17 Dose: Infused Documented by: Acetaminophen (Ofirmev) 650 mg in 65 mls @ 130 mls/hr IV Q6HP PRN; Protocol PRN Reason: PAIN/FEVER > 101 Levetiracetam (Keppra) 500 mg PO BID [facility] Last Admin: 10/23/19 10:27 Dose: 500 mg Documented by: Lorazepam (Ativan) 2 mg IV Q30MIN PRN PRN Reason: Seizure Activity Nicotine (Nicoderm) 21 mg TOPICAL DAILY@1000 PONCE Last Admin: 10/23/19 09:48 Dose: 21 mg Documented by: Ondansetron HCl (Zofran) 4 mg IV Q4-6HP PRN; Protocol PRN Reason: Nausea And Vomiting Last Admin: 10/22/19 15:56 Dose: 4 mg Documented by: Sodium Chloride (Saline Flush) 10 ml IV Q8 [facility] Last Admin: 10/23/19 06:11 Dose: Not Given Documented by: A/P Assessment and plan (1) Acute kidney injury (nontraumatic): Status: Acute Narrative A/P Narrative: A: *Drug overdose on opioids/Benzodiazepines: -Had a heroin overdose in August of this year, was hospitalized at [facility], Ultimately determined to be accidenta -He does have a prescription for clonazepam and that was suspected to be a co-ingestant at that hospitalization. -Currently, patient did have drug paraphernalia when he is found, suspect this is also opioid overdose, also positive for benzodiazepines, thus clonazepam may also be contributing. -No evidence of ethanol, no evidence of acetaminophen. Salicylate level was undetectable. *Mechanical Ventilation: 2/2 above -extubated 10/19 *Seizures: Improved. Loaded with fosphenytoin yesterday, remains on twice daily Keppra. -At presentation, he developed seizures upon arrival to the ED. Received multiple doses of lorazepam in the ED, subsequently loaded with Keppra. That in combination with propofol for sedation has suppressed seizure activity. -According to his mother, no known history of seizures. -May be related to metabolic acidosis or possible anoxic brain injury. -No evidence of hemorrhage, infarction or other finding on CT of the head. *Encephalopathy: Improved. Initially suspected acute anoxic encephalopathy, though postictal state may also be contributing. Given the patient's pH of 7.09 after presentation in the hospital suspect he may have been down for quite some time to develop a metabolic and respiratory acidosis. This likely had concurrent hypoxia. Other causes of encephalopathy include drug toxicity (though no real change with naloxone). -No evidence of infarct or hemorrhage on CT. *Mixed metabolic and respiratory acidosis: Resolved. At presentation, pH 7.09 with PCO2 of 50 with lactate of 6.8. -Given severity of acidosis and elevation of lactate, suspect he was down for a prolonged period. *QUENTIN: Resolved This may represent ATN from hypoxia or hypotension associated with his drug overdose, though given the rapidity of resolution, this may be m ore prerenal in nature. Fractional excretion of sodium is 0.3% supporting a prerenal etiology. He continues with urine output. *Rhabdomyolysis: multifactorial from being down, as well as from significant seizure activity. -urine analysis without casts and is maintaining urine output. -CK slowly trending down *QUENTIN: resolved *Asp PNA/Leukocytosis: wbc Improving, afebrile now. *Transaminitis: Suspect this represents shock liver/hypoxic liver damage. Improving P: Continue with Keppra 500 mg twice daily, PRN lorazepam Seizure precautions Continue ceftriaxone hydration, Monitor urine output Follow CK - -ppx: lovenox/ppi Time Spent With Patient Time: Total time spent is greater than 50% in coordination of care (as documented) at patient's floor/unit and/or counseling patient:
[2019-10-23] MEDS ORDERED: MECLIZINE 25 MG TABLET PO ONE (18:23)
[2019-10-23] MEDS ORDERED: LORazepam 2 MG/ML VIAL IV ONE (18:24)
[2019-10-23] MEDS: clonazePAM 1 MG TABLET PO PRN (18:27)
[2019-10-23] MEDS ORDERED: LORazepam 2 MG/ML VIAL ONE (18:49)
[2019-10-24] MEDS: 0.9 % SODIUM CHLORIDE 10 ML SYRINGE IV SCH (05:35)
[2019-10-24 07:00] LABS: ALT/SGPT 348 U/l (0-40); AST/SGOT 335 U/l (0-37); Albumin 2.9 gm/dL (3.2-5.2); Albumin/Globulin Ratio 1.3 (1.0-2.3); Alkaline Phosphatase 80 U/L (39-117); Bilirubin,Direct < 0.2 mg/dL (0.0-0.3); Bilirubin,Total 0.2 mg/dL (0.0-1.0); Blood Urea Nitrogen 9 mg/dl (6-20); Calcium 8.8 mg/dl (8.6-10.4); Carbon Dioxide 26 mmol/L (22-30); Chloride 106 mmol/L (96-108); Globulin 2.2 gm/dL (2.2-3.7); Glomerular Filtration Rate 131; Glucose 100 mg/dL (70-105); Phosphorous 4.3 mg/dL (2.7-4.5); Triglycerides 157 mg/dl (<150); Uric Acid 2.7 mg/dL (2.5-8.0)
[2019-10-24 07:23] LABS: Lactate Dehydrogenase 1033 U/L (94-250)
[2019-10-24] MEDS: clonazePAM 1 MG TABLET PO PRN (08:29)
[2019-10-24] MEDS: levETIRAcetam 500 MG TABLET PO SCH (08:29)
[2019-10-24] MEDS: cefTRIAXone 2 GM in DEXTROSE 5% IN WATER 50 ML IV SCH (08:29)
[2019-10-24] MEDS: ENOXAPARIN 40 MG/0.4 ML SYRINGE SQ SCH (08:29)
[2019-10-24] MEDS: FAMOTIDINE/PF 20 MG/2 ML VIAL IV SCH (08:30)
[2019-10-24 11:20] LABS: Hepatitis B Surface Antigen NEGATIVE (NEGATIVE); Hepatitis C Virus Antibody NON REACTIVE (NEGATIVE)
[2019-10-24] MEDS: NICOTINE 21 MG PATCH TOPICAL SCH (11:42)
== END 2019-10-24 11:07 | disposition home or self-care (01) | DRG 917 ==
LOC: ED 14:11 → MERGE 16:30 → ICU 16:30
PROVIDERS: ADMIT Internal Medicine; ATTEND Internal Medicine